=== PATIENT | male | born 1975 | race Caucasian/White ===

== ENCOUNTER 2018-04-09 13:29 | Outpatient (RCR) | payer OTHER, MEDICARE, SELFPAY ==
--- NOTE | 2018-04-10 17:28 | OT.OP.EVAL ---
Visit Care Team Role Provider Type Morgan Otero MD Other Providers Physician Primary Care Provider Specialty: Internal Medicine Address: [address] [address], [place], [address] Email: Rebeca Mason Attending Provider Non-Staff Specialty: Medical Address: [address] [place], [address] Email: Occupational Therapy Initial Evaluation OT Outpatient Adult Evaluation Start: 04/10/18 17:00 Freq: Status: Active Protocol: Document 04/10/18 17:01 AMS (Rec: 04/10/18 17:27 AMS [id number]) General Information Visit Start Time 13:40 Visit Stop Time 14:30 Total Visit Minutes 50 Insurance Information Primary - García; Secondary - Medicare Treatment Setting Outpatient Care Note Type Initial Evaluation Referring Physician JL Duff Reason for Referral ALS Identification Confirmed Yes Medical History Health History form completed and placed in paper chart. Pt is a 42 year-old male with ALS referred to outpt OT for assessment of any current issues w/ his daily execution of meaningful activities and to assist w/ planning for the near future for the additional care he will need. ADLs Comments Mod I; self-modifying at this time Fine Motor Hand Preference Right Comments R side has been more affected than L Goals Treatment Therapist discussed available AE options for ADL completion w/ patient and his Mother. Written and visual instructions re: options were provided to patient and his Mother to review at home. Dressing, g/h, self-feeding, bathing and toileting were discussed. Patient did not identify any other meaningful activities that he was having trouble participating in/ completing at this time. Assessment/Plan Patient Response Good Impairments Identified ADLs Balance Coordination/Dexterity Functional Activities Motor Function Pain Weakness Posture Range of Motion Recreational Activities Meaningful Activities Motor Planning Eye-Hand Coordination Additional Impairments Identified Fasciculations R arm > L arm Treatment Assessment Pt is a 42 year-old male with ALS referred to outpt OT for assessment of any current issues w/ his daily execution of meaningful activities and to assist w/ planning for the near future for the additional care he will need. Pt was accompanied by his Mother to the initial evaluation. PMH: b/p; neck pain; shortness of breath; ALS. Evaluation findings: Pt reported that he is currently mod I w/ completion of meaningful activities at this time and that he is modifying as needed (e.g., I used a wrench the other day to open a jar). Pt denied being previously educated re: AE options/modification strategies. Thus, OT evaluation and treatment on this date focused education. Therapist discussed available AE options for ADL completion. Written and visual instructions re: options were provided to patient and Mother to review at home. Dressing, g/h, self-feeding, bathing and toileting were discussed. Patient did not identify any other meaningful activities that he was having trouble participating in/completing at this time. Thus, denied need for additional, follow-up appointment w/ OT at this time . Home Exercise Program Please refer to treatment section of note for specific details. Reviewed with Patient Home Exercise Program Patient Understanding Good Comment Eval and treat only Therapeutic Contents Self-Care Patient Instruction Questions/Concerns Patient Recommendations Discharge from Occupational Therapy
--- NOTE | 2018-04-10 17:30 | OT.OP.DC ---
Visit Care Team Role Provider Type Morgan Otero MD Other Providers Physician Primary Care Provider Address: [address], [address] Email: Rebeca Mason Attending Provider Non-Staff Address: [address] [place], [address] Email: OT Outpatient OT Outpatient Adult Evaluation Start: 04/10/18 17:00 Freq: Status: Active Protocol: Document 04/10/18 17:01 AMS (Rec: 04/10/18 17:27 AMS [id number]) General Information Session Time Visit Start Time 13:40 Visit Stop Time 14:30 Total Visit Minutes 50 Visit Information Insurance Information Primary - [employer]; Secondary - Medicare Setting Treatment Setting Outpatient Care Visit Type Note Type Initial Evaluation Referral Referring Physician JL Duff Reason for Referral ALS Identification Identification Confirmed Yes Medical Information Medical History Health History form completed and placed in paper chart. Pt is a 42 year-old male with ALS referred to outpt OT for assessment of any current issues w/ his daily execution of meaningful activities and to assist w/ planning for the near future for the additional care he will need. ADLs Overall Ability Comments Mod I; self-modifying at this time Fine Motor Handedness Hand Preference Right Comments R side has been more affected than L Goals Treatment Treatment Therapist discussed available AE options for ADL completion w/ patient and his Mother. Written and visual instructions re: options were provided to patient and his Mother to review at home. Dressing, g/h, self-feeding, bathing and toileting were discussed. Patient did not identify any other meaningful activities that he was having trouble participating in/ completing at this time. Assessment/Plan Assessment Patient Response Good Impairments Identified ADLs Balance Coordination/Dexterity Functional Activities Motor Function Pain Weakness Posture Range of Motion Recreational Activities Meaningful Activities Motor Planning Eye-Hand Coordination Additional Impairments Identified Fasciculations R arm > L arm Treatment Assessment Pt is a 42 year-old male with ALS referred to outpt OT for assessment of any current issues w/ his daily execution of meaningful activities and to assist w/ planning for the near future for the additional care he will need. Pt was accompanied by his Mother to the initial evaluation. PMH: b/p; neck pain; shortness of breath; ALS. Evaluation findings: Pt reported that he is currently mod I w/ completion of meaningful activities at this time and that he is modifying as needed (e.g., I used a wrench the other day to open a jar). Pt denied being previously educated re: AE options/modification strategies. Thus, OT evaluation and treatment on this date focused education. Therapist discussed available AE options for ADL completion. Written and visual instructions re: options were provided to patient and Mother to review at home. Dressing, g/h, self-feeding, bathing and toileting were discussed. Patient did not identify any other meaningful activities that he was having trouble participating in/completing at this time. Thus, denied need for additional, follow-up appointment w/ OT at this time . Home Exercise Program Please refer to treatment section of note for specific details. Reviewed with Patient Home Exercise Program Patient Understanding Good Plan Comment Eval and treat only Therapeutic Contents Self-Care Patient Instruction Questions/Concerns Patient Recommendations Discharge from Occupational Therapy Sensory Assessment Sensory Profile2 Functional Wrist/Hand Scan Hand Side
== END 2018-06-02 11:15 ==
LOC: OT 13:29
PROVIDERS: PCP Internal Medicine; Visit Provider Physician Assistant
DX: G12.21 Amyotrophic lateral sclerosis (principal)
CPT/HCPCS: 97165; 97535

== ENCOUNTER 2018-07-15 13:30 | Outpatient (RCR) | payer OTHER, MEDICARE, SELFPAY | END 2018-12-09 14:26 | disposition home or self-care (01) | LOC: SP 13:30 | PROVIDERS: PCP Internal Medicine; Visit Provider Internal Medicine | DX: R13.10 Dysphagia, unspecified (principal) | CPT/HCPCS: 92507; 92526 ==

== ENCOUNTER 2018-09-08 14:30 | Outpatient (RCR) | payer OTHER, MEDICARE, SELFPAY ==
--- NOTE | 2018-04-09 17:42 | PT.OIE ---
Current Diagnoses Amyotrophic lateral sclerosis (04/09/18) Muscle weakness (generalized) (04/09/18) Ataxic gait (04/09/18) Other abnormalities of gait and mobility (04/09/18) Provider Visit Care Team Role Provider Type Morgan Otero MD Primary Care Provider Physician Specialty: Internal Medicine Address: [address], [address] Email: Rebeca Mason Attending Provider Non-Staff Specialty: Medical Address: [address] [place] [address], [id number] Email: Physical Therapy Initial Evaluation PT-OP-A Visit Information Start: 04/09/18 15:27 Freq: Status: Active Protocol: Document 04/09/18 14:35 DCW (Rec: 04/09/18 15:57 DCW [id number]) Out-Patient Physical Therapy Visit Information Visit Information Visit Type Initial Evaluation Visit Start Time 14:35 Visit Stop Time 15:15 Total Visit Minutes 40 Visit Number 1 Number of SOUND ENGINEERING TECHNICIAN Visits 0 Evaluation Information Evaluation Date 04/09/18 PT-OP-B Current Condition Start: 04/09/18 15:27 Freq: Status: Active Protocol: Document 04/09/18 14:35 DCW (Rec: 04/09/18 15:57 DCW [id number]) Current Condition History of Current Condition Onset Date 1 year Current Complaints ALS, Gait difficulty, weakness , fatigue History of Current Condition Pt is a 42 year old male diagnosed with ALS six months ago, although admits that he now realizes he had symptoms back last summer. 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 Notes he is slower and unable to run, and he'll catch his foot occasionally. Pt also notes that he will occasionally feel like his knee is about to give out, especially when descending stairs. Pt reports he has noticed trouble getting up off the ground, particularly last winter when snowboarding. Pt stays active, trying to walk or ride his bike daily, and wants to continue snowboarding this winter, although his mother, who was present for the evaluation, is not thrilled with that idea. 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 Notes that even though I'm up and walking around without falling , and can still ride my bike, it's still a far cry from what I was doing before. Treatment Goals Patient/Caregiver Goals I hadn't really thought about any sort of goal. They told me to come to PT, so I'm here. I didn't even know what ALS was a year ago, so I'm still trying to figure a lot of things out. 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 Baseline Function- Recreation/Hobbies Motocross, snowboarding, bike riding PT-OP-D Balance Start: 04/09/18 15:27 Freq: Status: Active Protocol: Document 04/09/18 14:35 DCW (Rec: 04/09/18 15:57 DCW [id number]) OP-PT Balance Assessment Sitting Balance Static Sitting Balance Ability Normal Dynamic Sitting Balance Ability Normal Standing Balance Static Standing Balance Ability Normal Dynamic Standing Balance Ability Normal Standing Balance Comments Narrow ESTEPHANIA - EO = Normal Narrow ESTEPHANIA - EC = Normal Narrow ESTEPHANIA - Head Turns = Normal Kelly Fall Scale Copyright Permission Leticia JM, Leticia RM, Brain SJ. Development of a scale to identify the fall- prone patient. Can J Aging 1989;8;366-7. Donato Kelly (2009). Preventing patient falls. (2nd ed). [place]: [place]. PT-OP-G Mobility & Gait Start: 04/09/18 15:27 Freq: Status: Active Protocol: Document 04/09/18 14:35 DCW (Rec: 04/09/18 15:57 DCW [id number]) OP Mobility Evaluation Transfers Sit to Stand Independent OP Gait Assessment Gait Gait Assistance Required: Independent Distance (Feet) 170 Able to Maintain Weight Bearing Status Yes During Gait Assistive Devices Assistive Device None Orthotic/Prosthetic Devices or Brace: No Gait Deviations General Gait Pattern Decreased Stride Length Lateral Trunk Lean Factors Limiting Gait Function Factors Limiting Gait Function Decreased Strength Comments Gait Comments Ambulates with increased stance time on left, left arm held in protective posturing, lateral lean while turning Stair Climbing Evaluation Evaluation Level of Assist On Stairs Independent Devices Stair Climbing Assistive Devices Left Railing Technique/Endurance Stair Climbing Direction Ascend and Descend Stair Climbing Technique Step Over Step Number of Steps Climbed 3 Stair Climbing Set # Repetitions (reps) 2 PT-OP-M Strength Start: 04/09/18 15:27 Freq: Status: Active Protocol: Document 04/09/18 14:35 DCW (Rec: 04/09/18 15:57 DCW [id number]) Hip Strength Hip Manual Muscle Testing Right Flexion (L2) 4+ Good+ Abduction 4+ Good+ Adduction 4+ Good+ Left Flexion (L2) 4+ Good+ Abduction 4+ Good+ Adduction 4+ Good+ Knee Strength Knee Manual Muscle Testing Right Flexion (S2) 4+ Good+ Extension (L3) 4+ Good+ Left Flexion (S2) 4+ Good+ Extension (L3) 4+ Good+ Ankle/Foot Strength Ankle and Foot Manual Muscle Testing Right Dorsiflexion (L4) 4+ Good+ Plantarflexion (S1) 4+ Good+ Left Dorsiflexion (L4) 4+ Good+ Plantarflexion (S1) 4+ Good+ PT-OP-T Assessment and Plan Start: 04/09/18 15:27 Freq: Status: Active Protocol: Document 04/09/18 14:35 DCW (Rec: 04/09/18 15:57 NCW [id number]) Physical Therapy Assessment Rehab Potential Rehabilitation Potential Fair Evaluation Complexity Number of Personal Factors/Comorbidities 3 or More Number of Body Systems Impaired 4 or More Clinical Presentation at Evaluation Unstable Impairments Impairments Activity Tolerance Balance Coordination Gait Strength Goals Three Impairment Activity tolerance Short Term Goal (STG) Pt to ride bike 3x/week for at least 30 minutes STG Duration 05/10/18 Two Impairment Gait Short Term Goal (STG) Pt to display equal stance time during gait bilaterally STG Duration 05/10/18 Print Producer Goal (LTG) Pt to display no LOB while turning LTG Duration 06/09/18 One Impairment Pt does not have an independent home exercise program Short Term Goal (STG) Pt to be independent and complaint with an appropriate HEP STG Duration 05/10/18 Assessment Summary Assessment Pt presents with signs and symptoms of early-stage ALS. Pt has generalized weakness, incoordination, and imbalance with dynamic gait, however overall he is doing very well. Pt currently continues to be out riding his bike, and plans to try snowboarding during the winter. At this time, pt is keeping himself active enough that he will likely not have added benefit from repetitive PT, however will likely benefit from occasional PT sessions to follow the progression of his disease and ensure he is maintaining a safe and appropriate exercise program, and to address ADL difficulties as they become more evident. A large limitation to pt's rehabilitation is the fact that he admits that he does not know much about the disease process, and has not looked into it all all that much. A large portion of pt's care will likely be education and caregiver support as the disease progresses. Physical Therapy Plan Frequency and Duration Frequency of Treatment 1x/Week Duration of Treatment 3 months Plan of Care Start Date 04/09/18 Plan of Care End Date 07/10/17 Therapeutic Interventions Therapeutic Interventions Aquatic Therapy Home Exercise Program Neuromuscular Re-education Patient/Caregiver Education Self-Care/Home Management Soft Tissue Mobilization Therapeutic Activities Therapeutic Exercises Next Visit Focus/Plan Next Note Type Treatment Note Next Visit Plan Advancement of HEP, assessment of function, decrease burden of care
--- NOTE | 2018-04-09 17:42 | PT.OPPOC ---
Current Diagnoses Amyotrophic lateral sclerosis (04/09/18) Muscle weakness (generalized) (04/09/18) Ataxic gait (04/09/18) Other abnormalities of gait and mobility (04/09/18) Provider Visit Care Team Role Provider Type Morgan Otero MD Primary Care Provider Physician Specialty: Internal Medicine Address: [address], [address] Email: Rebeca Mason Attending Provider Non-Staff Specialty: Medical Address: [address] [place] [address], [id number] Email: Plan Of Care PT-OP-T Assessment and Plan Start: 04/09/18 15:27 Freq: Status: Active Protocol: Document 04/09/18 14:35 DCW (Rec: 04/09/18 15:57 DCW [id number]) Physical Therapy Assessment Rehab Potential Rehabilitation Potential Fair Evaluation Complexity Number of Personal Factors/Comorbidities 3 or More Number of Body Systems Impaired 4 or More Clinical Presentation at Evaluation Unstable Impairments Impairments Activity Tolerance Balance Coordination Gait Strength Goals Three Impairment Activity tolerance Short Term Goal (STG) Pt to ride bike 3x/week for at least 30 minutes STG Duration 05/10/18 Two Impairment Gait Short Term Goal (STG) Pt to display equal stance time during gait bilaterally STG Duration 05/10/18 Director Of Reimbursement Goal (LTG) Pt to display no LOB while turning LTG Duration 06/09/18 One Impairment Pt does not have an independent home exercise program Short Term Goal (STG) Pt to be independent and complaint with an appropriate HEP STG Duration 05/10/18 Assessment Summary Assessment Pt presents with signs and symptoms of early-stage ALS. Pt has generalized weakness, incoordination, and imbalance with dynamic gait, however overall he is doing very well. Pt currently continues to be out riding his bike, and plans to try snowboarding during the winter. At this time, pt is keeping himself active enough that he will likely not have added benefit from repetitive PT, however will likely benefit from occasional PT sessions to follow the progression of his disease and ensure he is maintaining a safe and appropriate exercise program, and to address ADL difficulties as they become more evident. A large limitation to pt's rehabilitation is the fact that he admits that he does not know much about the disease process, and has not looked into it all all that much. A large portion of pt's care will likely be education and caregiver support as the disease progresses. Physical Therapy Plan Frequency and Duration Frequency of Treatment 1x/Week Duration of Treatment 3 months Plan of Care Start Date 04/09/18 Plan of Care End Date 07/10/17 Therapeutic Interventions Therapeutic Interventions Aquatic Therapy Home Exercise Program Neuromuscular Re-education Patient/Caregiver Education Self-Care/Home Management Soft Tissue Mobilization Therapeutic Activities Therapeutic Exercises Next Visit Focus/Plan Next Note Type Treatment Note Next Visit Plan Advancement of HEP, assessment of function, decrease burden of care Plan of Care Dates Plan of Care Start Date 04/09/18 Plan of Care End Date 07/10/17 Please Sign and Return: I have reviewed this Plan of Care and certify that the skilled therapy services above are required to meet the patient?s needs. Physician Signature Date Printed Name and Credentials Clinical Instructor Signature Printed Name and Credentials
--- NOTE | 2018-05-06 16:20 | PT.OTN ---
Current Diagnoses Amyotrophic lateral sclerosis (05/06/18) Physical Therapy Treatment Note PT-OP-A Visit Information Start: 04/09/18 15:27 Freq: Status: Active Protocol: Document 05/06/18 14:00 DCW (Rec: 05/06/18 16:19 DCW [id number]) Out-Patient Physical Therapy Visit Information Visit Information Visit Type Treatment Note Visit Note 15 minutes late Visit Start Time 14:00 Visit Stop Time 14:30 Total Visit Minutes 30 Visit Number 2 Number of HSPT TUTOR Visits 0 Evaluation Information Evaluation Date 04/09/18 PT-OP-B Current Condition Start: 04/09/18 15:27 Freq: Status: Active Protocol: Document 04/09/18 14:35 DCW (Rec: 04/09/18 15:57 DCW [id number]) Current Condition History of Current Condition Onset Date 1 year Current Complaints ALS, Gait difficulty, weakness , fatigue History of Current Condition Pt is a 42 year old male diagnosed with ALS six months ago, although admits that he now realizes he had symptoms back last summer. 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 Notes he is slower and unable to run, and he'll catch his foot occasionally. Pt also notes that he will occasionally feel like his knee is about to give out, especially when descending stairs. Pt reports he has noticed trouble getting up off the ground, particularly last winter when snowboarding. Pt stays active, trying to walk or ride his bike daily, and wants to continue snowboarding this winter, although his mother, who was present for the evaluation, is not thrilled with that idea. 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 Notes that even though I'm up and walking around without falling , and can still ride my bike, it's still a far cry from what I was doing before. Treatment Goals Patient/Caregiver Goals I hadn't really thought about any sort of goal. They told me to come to PT, so I'm here. I didn't even know what ALS was a year ago, so I'm still trying to figure a lot of things out. 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 Baseline Function- Recreation/Hobbies Motocross, snowboarding, bike riding PT-OP-C Subjective Start: 04/09/18 15:27 Freq: Status: Active Protocol: Document 05/06/18 14:00 DCW (Rec: 05/06/18 16:19 DCW [id number]) OP-PT Subjective Patient Comments Patient Comments Pt notes there has not been any decline in function since his last visit. PT-OP-D Balance Start: 04/09/18 15:27 Freq: Status: Active Protocol: Document 04/09/18 14:35 DCW (Rec: 04/09/18 15:57 DCW [id number]) OP-PT Balance Assessment Sitting Balance Static Sitting Balance Ability Normal Dynamic Sitting Balance Ability Normal Standing Balance Static Standing Balance Ability Normal Dynamic Standing Balance Ability Normal Standing Balance Comments Narrow ESTEPHANIA - EO = Normal Narrow ESTEPHANIA - EC = Normal Narrow ESTEPHANIA - Head Turns = Normal Kelly Fall Scale Copyright Permission Leticia FIGUEROA, Leticia RM, Brain [place]. Development of a scale to identify the fall- prone patient. Can J Aging 1989;8;366-7. Donato Kelly (2009). Preventing patient falls. (2nd ed). [place]: [place]. PT-OP-G Mobility & Gait Start: 04/09/18 15:27 Freq: Status: Active Protocol: Document 04/09/18 14:35 DCW (Rec: 04/09/18 15:57 DCW [id number]) OP Mobility Evaluation Transfers Sit to Stand Independent OP Gait Assessment Gait Gait Assistance Required: Independent Distance (Feet) 170 Able to Maintain Weight Bearing Status Yes During Gait Assistive Devices Assistive Device None Orthotic/Prosthetic Devices or Brace: No Gait Deviations General Gait Pattern Decreased Stride Length Lateral Trunk Lean Factors Limiting Gait Function Factors Limiting Gait Function Decreased Strength Comments Gait Comments Ambulates with increased stance time on left, left arm held in protective posturing, lateral lean while turning Stair Climbing Evaluation Evaluation Level of Assist On Stairs Independent Devices Stair Climbing Assistive Devices Left Railing Technique/Endurance Stair Climbing Direction Ascend and Descend Stair Climbing Technique Step Over Step Number of Steps Climbed 3 Stair Climbing Set # Repetitions (reps) 2 PT-OP-M Strength Start: 04/09/18 15:27 Freq: Status: Active Protocol: Document 04/09/18 14:35 DCW (Rec: 04/09/18 15:57 DCW [id number]) Hip Strength Hip Manual Muscle Testing Right Flexion (L2) 4+ Good+ Abduction 4+ Good+ Adduction 4+ Good+ Left Flexion (L2) 4+ Good+ Abduction 4+ Good+ Adduction 4+ Good+ Knee Strength Knee Manual Muscle Testing Right Flexion (S2) 4+ Good+ Extension (L3) 4+ Good+ Left Flexion (S2) 4+ Good+ Extension (L3) 4+ Good+ Ankle/Foot Strength Ankle and Foot Manual Muscle Testing Right Dorsiflexion (L4) 4+ Good+ Plantarflexion (S1) 4+ Good+ Left Dorsiflexion (L4) 4+ Good+ Plantarflexion (S1) 4+ Good+ PT-OP-Q Treatments Start: 04/09/18 15:27 Freq: Status: Active Protocol: Document 05/06/18 14:00 DCW (Rec: 05/06/18 16:19 DCW [id number]) Gym Equipment Shuttle Balance Red Details Wide ESTEPHANIA (EO/EC), Staggered Stance, Lateral Weight Shift Therapeutic Exercises Sitting Exercises Connie Scratcher strengthening Sitting Exercise Name full hand and individual finger putty squeeze Resistance Green Equipment Used Thera-putty Neuro Re-Education Treatment Balance Activities Heel-toe Ambulation Details Eyes open/closed, forward/ backward Tippo Details Tippo Step, [place], and head turns Details 3-steps, bow, head turns Double leg on foam Details Romberg stance Surface Maradiaga foam SLS Details /c Head turns Surface Firm, Foam PT-OP-T Assessment and Plan Start: 04/09/18 15:27 Freq: Status: Active Protocol: Document 05/06/18 14:00 DCW (Rec: 05/06/18 16:19 DCW [id number]) Physical Therapy Assessment Impairments Impairments Activity Tolerance Balance Coordination Gait Strength Goals Three Impairment Activity tolerance Short Term Goal (STG) Pt to ride bike 3x/week for at least 30 minutes STG Duration 05/10/18 Two Impairment Gait Short Term Goal (STG) Pt to display equal stance time during gait bilaterally STG Duration 05/10/18 Retirement Goal (LTG) Pt to display no LOB while turning LTG Duration 06/09/18 One Impairment Pt does not have an independent home exercise program Short Term Goal (STG) Pt to be independent and complaint with an appropriate HEP STG Duration 05/10/18 Assessment Summary Assessment Pt has no change in current level of function over the past month, pt currently unsure if he wants to continue with semi-regular appointments, or just continue with an HEP, and call for visits if he feels like he is suffering a decline in function. Physical Therapy Plan Frequency and Duration Frequency of Treatment 1x/Week Duration of Treatment 3 months Plan of Care Start Date 04/09/18 Plan of Care End Date 07/10/18 Therapeutic Interventions Therapeutic Interventions Aquatic Therapy Home Exercise Program Neuromuscular Re-education Patient/Caregiver Education Self-Care/Home Management Soft Tissue Mobilization Therapeutic Activities Therapeutic Exercises Next Visit Focus/Plan Next Note Type Treatment Note Next Visit Plan Advancement of HEP, assessment of function, decrease burden of care
--- NOTE | 2018-07-15 14:43 | PT.OTN ---
Current Diagnoses Amyotrophic lateral sclerosis (07/15/18) Physical Therapy Treatment Note PT-OP-A Visit Information Start: 04/09/18 15:27 Freq: Status: Active Protocol: Document 07/15/18 12:15 DCW (Rec: 07/15/18 14:40 DCW [id number]) Out-Patient Physical Therapy Visit Information Visit Information Visit Type Progress Note Visit Note 15 minutes late Visit Start Time 12:15 Visit Stop Time 12:45 Total Visit Minutes 30 Visit Number 3 Evaluation Information Evaluation Date 04/09/18 PT-OP-B Current Condition Start: 04/09/18 15:27 Freq: Status: Active Protocol: Document 04/09/18 14:35 DCW (Rec: 04/09/18 15:57 DCW [id number]) Current Condition History of Current Condition Onset Date 1 year Current Complaints ALS, Gait difficulty, weakness , fatigue History of Current Condition Pt is a 42 year old male diagnosed with ALS six months ago, although admits that he now realizes he had symptoms back last summer. Reports that his weakness began in his hands with driller multiple spindle strength and fine motor skills, but now he feels like his walking is stiff and Frankenstein-like. Notes he is slower and unable to run, and he'll catch his foot occasionally. Pt also notes that he will occasionally feel like his knee is about to give out, especially when descending stairs. Pt reports he has noticed trouble getting up off the ground, particularly last winter when snowboarding. Pt stays active, trying to walk or ride his bike daily, and wants to continue snowboarding this winter, although his mother, who was present for the evaluation, is not thrilled with that idea. 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 Notes that even though I'm up and walking around without falling , and can still ride my bike, it's still a far cry from what I was doing before. Treatment Goals Patient/Caregiver Goals I hadn't really thought about any sort of goal. They told me to come to PT, so I'm here. I didn't even know what ALS was a year ago, so I'm still trying to figure a lot of things out. 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 Baseline Function- Recreation/Hobbies Motocross, snowboarding, bike riding PT-OP-C Subjective Start: 04/09/18 15:27 Freq: Status: Active Protocol: Document 07/15/18 12:15 DCW (Rec: 07/15/18 14:40 DCW [id number]) OP-PT Subjective Patient Comments Patient Comments Pt reports he has been stubbing his toes a lot more recently. Reports he tried to go snowboarding over the weekend, notes I made it to the bottom, but I was very unstable. PT-OP-D Balance Start: 04/09/18 15:27 Freq: Status: Active Protocol: Document 07/15/18 12:15 DCW (Rec: 07/15/18 14:40 DCW [id number]) OP-PT Balance Assessment Standing Balance Static Standing Balance Ability Good Dynamic Standing Balance Ability Good Kelly Fall Scale Copyright Permission Leticia FIGUEROA, Leticia RM, Brain S[place]. Development of a scale to identify the fall- prone patient. Can J Aging 1989;8;366-7. Donato Kelly (2009). Preventing patient falls. (2nd ed). [place]: [place]. PT-OP-G Mobility & Gait Start: 04/09/18 15:27 Freq: Status: Active Protocol: Document 04/09/18 14:35 DCW (Rec: 04/09/18 15:57 DCW [id number]) OP Mobility Evaluation Transfers Sit to Stand Independent OP Gait Assessment Gait Gait Assistance Required: Independent Distance (Feet) 170 Able to Maintain Weight Bearing Status Yes During Gait Assistive Devices Assistive Device None Orthotic/Prosthetic Devices or Brace: No Gait Deviations General Gait Pattern Decreased Stride Length Lateral Trunk Lean Factors Limiting Gait Function Factors Limiting Gait Function Decreased Strength Comments Gait Comments Ambulates with increased stance time on left, left arm held in protective posturing, lateral lean while turning Stair Climbing Evaluation Evaluation Level of Assist On Stairs Independent Devices Stair Climbing Assistive Devices Left Railing Technique/Endurance Stair Climbing Direction Ascend and Descend Stair Climbing Technique Step Over Step Number of Steps Climbed 3 Stair Climbing Set # Repetitions (reps) 2 PT-OP-J Posture/Palpation/Skin Start: 07/15/18 14:40 Freq: Status: Active Protocol: Document 07/15/18 12:15 DCW (Rec: 07/15/18 14:43 DCW [id number]) Posture Evaluation Position Standing Evaluation View Lateral Head/C-Spine Posture Forward Head T-Spine Posture Increased Kyphosis Shoulder Posture (L) Rounded (R) Rounded Scapula Posture (L) Protracted (R) Protracted PT-OP-K Range of Motion Start: 07/15/18 14:40 Freq: Status: Active Protocol: Document 07/15/18 12:15 DCW (Rec: 07/15/18 14:43 DCW [id number]) Shoulder Goniometric Range of Motion Shoulder Measured in Degrees Right Passive Flexion 180 Abduction 180 Right Active Flexion 58 Abduction 47 Left Passive Flexion 180 Abduction 180 Left Active Flexion 52 Abduction 46 PT-OP-M Strength Start: 04/09/18 15:27 Freq: Status: Active Protocol: Document 07/15/18 12:15 DCW (Rec: 07/15/18 14:40 DCW [id number]) Shoulder Strength Shoulder Manual Muscle Testing Right Flexion 3- Fair- Abduction (C5) 3- Fair- Left Flexion 3- Fair- Abduction (C5) 3- Fair- Hip Strength Hip Manual Muscle Testing Right Flexion (L2) 4 Good Abduction 4 Good Adduction 4 Good Left Flexion (L2) 4 Good Abduction 4 Good Adduction 4 Good Knee Strength Knee Manual Muscle Testing Right Flexion (S2) 4 Good Extension (L3) 4 Good Left Flexion (S2) 4 Good Extension (L3) 4 Good PT-OP-Q Treatments Start: 04/09/18 15:27 Freq: Status: Active Protocol: Document 07/15/18 12:15 DCW (Rec: 07/15/18 14:40 DCW [id number]) Gym Equipment Shuttle Balance Red Details Wide ESTEPHANIA (EO/EC), Staggered Stance, Lateral Weight Shift Therapeutic Exercises Sitting Exercises Wrist flexion stretch Sitting Exercise Name Stretch into wrist extension Shoulder Flexion Sitting Exercise Name Shoulder flexion in chair Resistance 0# Shoulder PROM Sitting Exercise Name Flexion/Abduction with pulleys Side bilateral Equipment Used Pulleys Standing Exercises Corner/Door stretch Standing Exercise Name Corner stretch Other Exercises Hurdles/Foam Other Exercise Name Hurdles/Foam with 5# ankle weights PT-OP-T Assessment and Plan Start: 04/09/18 15:27 Freq: Status: Active Protocol: Document 07/15/18 12:15 DCW (Rec: 07/15/18 14:40 DCW [id number]) Physical Therapy Assessment Impairments Impairments Activity Tolerance Balance Coordination Gait Strength Goals Three Impairment Activity tolerance Short Term Goal (STG) Pt to ride bike 3x/week for at least 30 minutes STG Duration 08/15/18 Two Impairment Gait Short Term Goal (STG) Pt to display equal stance time during gait bilaterally STG Duration 08/15/18 Custodial Goal (LTG) Pt to display no LOB while turning LTG Duration 09/12/18 One Impairment Pt does not have an independent home exercise program Short Term Goal (STG) Pt to be independent and complaint with an appropriate HEP STG Duration 08/15/18 Assessment Summary Assessment Pt displays decreased function since April, with weakness evident bilaterally, UE worse than LE, worsening forward shoulders posture, and stated worsening control of his feet pt instructed in multiple stretches, and suggested to work more on his driller multiple spindle strength than what he has been. PT and pt's mother discussed increasing frequency of visits . Physical Therapy Plan Frequency and Duration Frequency of Treatment 1x/Week Duration of Treatment 3 months Plan of Care Start Date 07/15/18 Plan of Care End Date 10/13/18 Therapeutic Interventions Therapeutic Interventions Aquatic Therapy Home Exercise Program Neuromuscular Re-education Patient/Caregiver Education Self-Care/Home Management Soft Tissue Mobilization Therapeutic Activities Therapeutic Exercises Next Visit Focus/Plan Next Note Type Treatment Note Next Visit Plan Advancement of HEP, assessment of function, decrease burden of care
--- NOTE | 2018-07-15 14:44 | PT.OPPOC ---
Current Diagnoses Amyotrophic lateral sclerosis (07/15/18) Provider Visit Care Team Role Provider Type Morgan Otero MD Primary Care Provider Physician Specialty: Internal Medicine Address: [address], [address] Email: Rebeca Mason Attending Provider Non-Staff Specialty: Medical Address: [address] [facility], [place], [address] Email: Plan Of Care PT-OP-T Assessment and Plan Start: 04/09/18 15:27 Freq: Status: Active Protocol: Document 07/15/18 12:15 DCW (Rec: 07/15/18 14:40 DCW [id number]) Physical Therapy Assessment Impairments Impairments Activity Tolerance Balance Coordination Gait Strength Goals Three Impairment Activity tolerance Short Term Goal (STG) Pt to ride bike 3x/week for at least 30 minutes STG Duration 08/15/18 Two Impairment Gait Short Term Goal (STG) Pt to display equal stance time during gait bilaterally STG Duration 08/15/18 Prison Goal (LTG) Pt to display no LOB while turning LTG Duration 09/12/18 One Impairment Pt does not have an independent home exercise program Short Term Goal (STG) Pt to be independent and complaint with an appropriate HEP STG Duration 08/15/18 Assessment Summary Assessment Pt displays decreased function since April, with weakness evident bilaterally, UE worse than LE, worsening forward shoulders posture, and stated worsening control of his feet pt instructed in multiple stretches, and 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 PT and pt's mother discussed increasing frequency of visits . Physical Therapy Plan Frequency and Duration Frequency of Treatment 1x/Week Duration of Treatment 3 months Plan of Care Start Date 07/15/18 Plan of Care End Date 10/13/18 Therapeutic Interventions Therapeutic Interventions Aquatic Therapy Home Exercise Program Neuromuscular Re-education Patient/Caregiver Education Self-Care/Home Management Soft Tissue Mobilization Therapeutic Activities Therapeutic Exercises Next Visit Focus/Plan Next Note Type Treatment Note Next Visit Plan Advancement of HEP, assessment of function, decrease burden of care Plan of Care Dates Plan of Care Start Date 07/15/18 Plan of Care End Date 10/13/18 Please Sign and Return: I have reviewed this Plan of Care and certify that the skilled therapy services above are required to meet the patient?s needs. Physician Signature Date Printed Name and Credentials Clinical Instructor Signature Printed Name and Credentials
--- NOTE | 2018-07-23 15:17 | PT.OTN ---
Current Diagnoses Amyotrophic lateral sclerosis (07/23/18) Physical Therapy Treatment Note PT-OP-A Visit Information Start: 04/09/18 15:27 Freq: Status: Active Protocol: Document 07/23/18 14:30 DCW (Rec: 07/23/18 15:17 DCW [id number]) Out-Patient Physical Therapy Visit Information Visit Information Visit Type Treatment Note Visit Start Time 14:30 Visit Stop Time 15:15 Total Visit Minutes 45 Visit Number 4 Number of RUBBER TILE FLOOR LAYER Visits 0 Evaluation Information Evaluation Date 04/09/18 PT-OP-B Current Condition Start: 04/09/18 15:27 Freq: Status: Active Protocol: Document 04/09/18 14:35 DCW (Rec: 04/09/18 15:57 DCW [id number]) Current Condition History of Current Condition Onset Date 1 year Current Complaints ALS, Gait difficulty, weakness , fatigue History of Current Condition Pt is a 42 year old male diagnosed with ALS six months ago, although admits that he now realizes he had symptoms back last summer. Reports that his weakness began in his hands with vp software support strength and fine motor skills, but now he feels like his walking is stiff and Frankenstein-like. Notes he is slower and unable to run, and he'll catch his foot occasionally. Pt also notes that he will occasionally feel like his knee is about to give out, especially when descending stairs. Pt reports he has noticed trouble getting up off the ground, particularly last winter when snowboarding. Pt stays active, trying to walk or ride his bike daily, and wants to continue snowboarding this winter, although his mother, who was present for the evaluation, is not thrilled with that idea. 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 Notes that even though I'm up and walking around without falling , and can still ride my bike, it's still a far cry from what I was doing before. Treatment Goals Patient/Caregiver Goals I hadn't really thought about any sort of goal. They told me to come to PT, so I'm here. I didn't even know what ALS was a year ago, so I'm still trying to figure a lot of things out. 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 Baseline Function- Recreation/Hobbies Motocross, snowboarding, bike riding PT-OP-C Subjective Start: 04/09/18 15:27 Freq: Status: Active Protocol: Document 07/23/18 14:30 DCW (Rec: 07/23/18 15:17 DCW [id number]) OP-PT Subjective Patient Comments Patient Comments Pt notes he's feeling better today. PT-OP-D Balance Start: 04/09/18 15:27 Freq: Status: Active Protocol: Document 07/15/18 12:15 DCW (Rec: 07/15/18 14:40 DCW [id number]) OP-PT Balance Assessment Standing Balance Static Standing Balance Ability Good Dynamic Standing Balance Ability Good Kelly Fall Scale Copyright Permission Leticia FIGUEROA, Leticia RM, Brain SJ. Development of a scale to identify the fall- prone patient. Can J Aging 1989;8;366-7. Donato Kelly (2009). Preventing patient falls. (2nd ed). [place]: [place]. PT-OP-G Mobility & Gait Start: 04/09/18 15:27 Freq: Status: Active Protocol: Document 04/09/18 14:35 DCW (Rec: 04/09/18 15:57 DCW [id number]) OP Mobility Evaluation Transfers Sit to Stand Independent OP Gait Assessment Gait Gait Assistance Required: Independent Distance (Feet) 170 Able to Maintain Weight Bearing Status Yes During Gait Assistive Devices Assistive Device None Orthotic/Prosthetic Devices or Brace: No Gait Deviations General Gait Pattern Decreased Stride Length Lateral Trunk Lean Factors Limiting Gait Function Factors Limiting Gait Function Decreased Strength Comments Gait Comments Ambulates with increased stance time on left, left arm held in protective posturing, lateral lean while turning Stair Climbing Evaluation Evaluation Level of Assist On Stairs Independent Devices Stair Climbing Assistive Devices Left Railing Technique/Endurance Stair Climbing Direction Ascend and Descend Stair Climbing Technique Step Over Step Number of Steps Climbed 3 Stair Climbing Set # Repetitions (reps) 2 PT-OP-J Posture/Palpation/Skin Start: 07/15/18 14:40 Freq: Status: Active Protocol: Document 07/15/18 12:15 DCW (Rec: 07/15/18 14:43 DCW [id number]) Posture Evaluation Position Standing Evaluation View Lateral Head/C-Spine Posture Forward Head T-Spine Posture Increased Kyphosis Shoulder Posture (L) Rounded (R) Rounded Scapula Posture (L) Protracted (R) Protracted PT-OP-K Range of Motion Start: 07/15/18 14:40 Freq: Status: Active Protocol: Document 07/15/18 12:15 DCW (Rec: 07/15/18 14:43 DCW [id number]) Shoulder Goniometric Range of Motion Shoulder Measured in Degrees Right Passive Flexion 180 Abduction 180 Right Active Flexion 58 Abduction 47 Left Passive Flexion 180 Abduction 180 Left Active Flexion 52 Abduction 46 PT-OP-M Strength Start: 04/09/18 15:27 Freq: Status: Active Protocol: Document 07/15/18 12:15 DCW (Rec: 07/15/18 14:40 DCW [id number]) Shoulder Strength Shoulder Manual Muscle Testing Right Flexion 3- Fair- Abduction (C5) 3- Fair- Left Flexion 3- Fair- Abduction (C5) 3- Fair- Hip Strength Hip Manual Muscle Testing Right Flexion (L2) 4 Good Abduction 4 Good Adduction 4 Good Left Flexion (L2) 4 Good Abduction 4 Good Adduction 4 Good Knee Strength Knee Manual Muscle Testing Right Flexion (S2) 4 Good Extension (L3) 4 Good Left Flexion (S2) 4 Good Extension (L3) 4 Good PT-OP-Q Treatments Start: 04/09/18 15:27 Freq: Status: Active Protocol: Document 07/23/18 14:30 DCW (Rec: 07/23/18 15:17 DCW [id number]) Gym Equipment Shuttle Balance Red Details Wide ESTEPHANIA (EO/EC), Staggered Stance, Lateral Weight Shift Therapeutic Exercises Supine Exercises Piriformis stretch Supine Exercise Name Figure-4 Side bilateral Single KtC Supine Exercise Name Single KtC Side bilateral Hamstring stretch Supine Exercise Name HS stretch Side bilateral Butterfly Stretch Supine Exercise Name Hands behind head Side bilateral Pec Stretch Supine Exercise Name foam roll pec stretch Side bilateral Equipment Used Foam Roll Foam-roll Supine Exercise Name Shoulder flex/ext, sh Horizontal adduction Side bilateral Resistance 2# Sitting Exercises Shoulder PROM Sitting Exercise Name Flexion/Abduction with pulleys Side bilateral Equipment Used Pulleys PT-OP-T Assessment and Plan Start: 04/09/18 15:27 Freq: Status: Active Protocol: Document 07/23/18 14:30 DCW (Rec: 07/23/18 15:17 DCW [id number]) Physical Therapy Assessment Impairments Impairments Activity Tolerance Balance Coordination Gait Strength Goals Three Impairment Activity tolerance Short Term Goal (STG) Pt to ride bike 3x/week for at least 30 minutes STG Duration 08/15/18 Two Impairment Gait Short Term Goal (STG) Pt to display equal stance time during gait bilaterally STG Duration 08/15/18 Prison Goal (LTG) Pt to display no LOB while turning LTG Duration 09/12/18 One Impairment Pt does not have an independent home exercise program Short Term Goal (STG) Pt to be independent and complaint with an appropriate HEP STG Duration 08/15/18 Assessment Summary Assessment Pt tolerated stretching well today, interested in increasing flexibility to improve functional movement. Physical Therapy Plan Frequency and Duration Frequency of Treatment 1x/Week Duration of Treatment 3 months Plan of Care Start Date 07/15/18 Plan of Care End Date 10/13/18 Therapeutic Interventions Therapeutic Interventions Aquatic Therapy Home Exercise Program Neuromuscular Re-education Patient/Caregiver Education Self-Care/Home Management Soft Tissue Mobilization Therapeutic Activities Therapeutic Exercises Next Visit Focus/Plan Next Note Type Treatment Note Next Visit Plan Advancement of HEP, assessment of function, decrease burden of care
--- NOTE | 2018-07-28 15:51 | PT.OTN ---
Current Diagnoses Amyotrophic lateral sclerosis (07/28/18) Physical Therapy Treatment Note PT-OP-A Visit Information Start: 04/09/18 15:27 Freq: Status: Active Protocol: Document 07/28/18 15:42 GGD (Rec: 07/28/18 15:51 GGD [id number]) Out-Patient Physical Therapy Visit Information Visit Information Visit Type Treatment Note Visit Note 15 minutes late Visit Start Time 14:45 Visit Stop Time 15:20 Total Visit Minutes 35 Visit Number 5 Number of SLATE MIXER Visits 1 Evaluation Information Evaluation Date 04/09/18 PT-OP-B Current Condition Start: 04/09/18 15:27 Freq: Status: Active Protocol: Document 04/09/18 14:35 DCW (Rec: 04/09/18 15:57 DCW [id number]) Current Condition History of Current Condition Onset Date 1 year Current Complaints ALS, Gait difficulty, weakness , fatigue History of Current Condition Pt is a 42 year old male diagnosed with ALS six months ago, although admits that he now realizes he had symptoms back last summer. Reports that his weakness began in his hands with seed potato cutter strength and fine motor skills, but now he feels like his walking is stiff and Frankenstein-like. Notes he is slower and unable to run, and he'll catch his foot occasionally. Pt also notes that he will occasionally feel like his knee is about to give out, especially when descending stairs. Pt reports he has noticed trouble getting up off the ground, particularly last winter when snowboarding. Pt stays active, trying to walk or ride his bike daily, and wants to continue snowboarding this winter, although his mother, who was present for the evaluation, is not thrilled with that idea. 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 Notes that even though I'm up and walking around without falling , and can still ride my bike, it's still a far cry from what I was doing before. Treatment Goals Patient/Caregiver Goals I hadn't really thought about any sort of goal. They told me to come to PT, so I'm here. I didn't even know what ALS was a year ago, so I'm still trying to figure a lot of things out. 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 Baseline Function- Recreation/Hobbies Motocross, snowboarding, bike riding PT-OP-C Subjective Start: 04/09/18 15:27 Freq: Status: Active Protocol: Document 07/28/18 15:42 GGD (Rec: 07/28/18 15:51 GGD [id number]) OP-PT Subjective Patient Comments Patient Comments Pt states he done a lot of walking today and his leg are tired. PT-OP-D Balance Start: 04/09/18 15:27 Freq: Status: Active Protocol: Document 07/15/18 12:15 DCW (Rec: 07/15/18 14:40 DCW [id number]) OP-PT Balance Assessment Standing Balance Static Standing Balance Ability Good Dynamic Standing Balance Ability Good Kelly Fall Scale Copyright Permission Leticia FIGUEROA, Leticia RM, Brain S[place]. Development of a scale to identify the fall- prone patient. Can J Aging 1989;8;366-7. Donato Kelly (2009). Preventing patient falls. (2nd ed). [place]: [place]. PT-OP-G Mobility & Gait Start: 04/09/18 15:27 Freq: Status: Active Protocol: Document 04/09/18 14:35 DCW (Rec: 04/09/18 15:57 DCW [id number]) OP Mobility Evaluation Transfers Sit to Stand Independent OP Gait Assessment Gait Gait Assistance Required: Independent Distance (Feet) 170 Able to Maintain Weight Bearing Status Yes During Gait Assistive Devices Assistive Device None Orthotic/Prosthetic Devices or Brace: No Gait Deviations General Gait Pattern Decreased Stride Length Lateral Trunk Lean Factors Limiting Gait Function Factors Limiting Gait Function Decreased Strength Comments Gait Comments Ambulates with increased stance time on left, left arm held in protective posturing, lateral lean while turning Stair Climbing Evaluation Evaluation Level of Assist On Stairs Independent Devices Stair Climbing Assistive Devices Left Railing Technique/Endurance Stair Climbing Direction Ascend and Descend Stair Climbing Technique Step Over Step Number of Steps Climbed 3 Stair Climbing Set # Repetitions (reps) 2 PT-OP-J Posture/Palpation/Skin Start: 07/15/18 14:40 Freq: Status: Active Protocol: Document 07/15/18 12:15 DCW (Rec: 07/15/18 14:43 DCW [id number]) Posture Evaluation Position Standing Evaluation View Lateral Head/C-Spine Posture Forward Head T-Spine Posture Increased Kyphosis Shoulder Posture (L) Rounded (R) Rounded Scapula Posture (L) Protracted (R) Protracted PT-OP-K Range of Motion Start: 07/15/18 14:40 Freq: Status: Active Protocol: Document 07/15/18 12:15 DCW (Rec: 07/15/18 14:43 DCW [id number]) Shoulder Goniometric Range of Motion Shoulder Measured in Degrees Right Passive Flexion 180 Abduction 180 Right Active Flexion 58 Abduction 47 Left Passive Flexion 180 Abduction 180 Left Active Flexion 52 Abduction 46 PT-OP-M Strength Start: 04/09/18 15:27 Freq: Status: Active Protocol: Document 07/15/18 12:15 DCW (Rec: 07/15/18 14:40 DCW [id number]) Shoulder Strength Shoulder Manual Muscle Testing Right Flexion 3- Fair- Abduction (C5) 3- Fair- Left Flexion 3- Fair- Abduction (C5) 3- Fair- Hip Strength Hip Manual Muscle Testing Right Flexion (L2) 4 Good Abduction 4 Good Adduction 4 Good Left Flexion (L2) 4 Good Abduction 4 Good Adduction 4 Good Knee Strength Knee Manual Muscle Testing Right Flexion (S2) 4 Good Extension (L3) 4 Good Left Flexion (S2) 4 Good Extension (L3) 4 Good PT-OP-Q Treatments Start: 04/09/18 15:27 Freq: Status: Active Protocol: Document 07/28/18 15:42 GGD (Rec: 07/28/18 15:51 GGD [id number]) Gym Equipment Shuttle Balance Red Details Wide ESTEPHANIA (EO/EC), Staggered Stance, Lateral Weight Shift Therapeutic Exercises Supine Exercises Piriformis stretch Supine Exercise Name Figure-4 Side bilateral Single KtC Supine Exercise Name Single KtC Side bilateral Hamstring stretch Supine Exercise Name HS stretch Side bilateral Butterfly Stretch Supine Exercise Name Hands behind head Side bilateral Pec Stretch Supine Exercise Name foam roll pec stretch Side bilateral Equipment Used Foam Roll Foam-roll Supine Exercise Name Shoulder flex/ext, sh Horizontal adduction Side bilateral Resistance 2# Sitting Exercises Shoulder PROM Sitting Exercise Name Flexion/Abduction with pulleys Side bilateral Equipment Used Pulleys Standing Exercises 1 Standing Exercise Name sit to stand from table Comments min cues for control PT-OP-T Assessment and Plan Start: 04/09/18 15:27 Freq: Status: Active Protocol: Document 07/28/18 15:42 GGD (Rec: 07/28/18 15:51 GGD [id number]) Physical Therapy Assessment Assessment Summary Assessment Pt improved with sit to stand control with cues. He had good tolerance to balance, but fatigued quickly. Physical Therapy Plan Frequency and Duration Frequency of Treatment 1x/Week Duration of Treatment 3 months Plan of Care Start Date 07/15/18 Plan of Care End Date 10/13/18 Therapeutic Interventions Therapeutic Interventions Aquatic Therapy Home Exercise Program Neuromuscular Re-education Patient/Caregiver Education Self-Care/Home Management Soft Tissue Mobilization Therapeutic Activities Therapeutic Exercises Next Visit Focus/Plan Next Note Type Treatment Note Next Visit Plan Advancement of HEP, assessment of function, decrease burden of care
--- NOTE | 2018-08-12 15:16 | PT.OTN ---
Current Diagnoses Amyotrophic lateral sclerosis (08/12/18) Physical Therapy Treatment Note PT-OP-A Visit Information Start: 04/09/18 15:27 Freq: Status: Active Protocol: Document 08/12/18 14:30 DCW (Rec: 08/12/18 15:16 DCW [id number]) Out-Patient Physical Therapy Visit Information Visit Information Visit Type Treatment Note Visit Start Time 14:30 Visit Stop Time 15:15 Total Visit Minutes 45 Visit Number 6 Number of CENTRAL SUPPLY TECHNICIAN Visits 0 Evaluation Information Evaluation Date 04/09/18 PT-OP-B Current Condition Start: 04/09/18 15:27 Freq: Status: Active Protocol: Document 04/09/18 14:35 DCW (Rec: 04/09/18 15:57 DCW [id number]) Current Condition History of Current Condition Onset Date 1 year Current Complaints ALS, Gait difficulty, weakness , fatigue History of Current Condition Pt is a 42 year old male diagnosed with ALS six months ago, although admits that he now realizes he had symptoms back last summer. Reports that his weakness began in his hands with supply chain coordinator strength and fine motor skills, but now he feels like his walking is stiff and Frankenstein-like. Notes he is slower and unable to run, and he'll catch his foot occasionally. Pt also notes that he will occasionally feel like his knee is about to give out, especially when descending stairs. Pt reports he has noticed trouble getting up off the ground, particularly last winter when snowboarding. Pt stays active, trying to walk or ride his bike daily, and wants to continue snowboarding this winter, although his mother, who was present for the evaluation, is not thrilled with that idea. 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 Notes that even though I'm up and walking around without falling , and can still ride my bike, it's still a far cry from what I was doing before. Treatment Goals Patient/Caregiver Goals I hadn't really thought about any sort of goal. They told me to come to PT, so I'm here. I didn't even know what ALS was a year ago, so I'm still trying to figure a lot of things out. 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 Baseline Function- Recreation/Hobbies Motocross, snowboarding, bike riding PT-OP-C Subjective Start: 04/09/18 15:27 Freq: Status: Active Protocol: Document 08/12/18 14:30 DCW (Rec: 08/12/18 15:16 DCW [id number]) OP-PT Subjective Patient Comments Patient Comments Pt reports he is doing well today PT-OP-D Balance Start: 04/09/18 15:27 Freq: Status: Active Protocol: Document 07/15/18 12:15 DCW (Rec: 07/15/18 14:40 DCW [id number]) OP-PT Balance Assessment Standing Balance Static Standing Balance Ability Good Dynamic Standing Balance Ability Good Kelly Fall Scale Copyright Permission Leticia FIGUEROA, Leticia RM, Brain SJ. Development of a scale to identify the fall- prone patient. Can J Aging 1989;8;366-7. Donato Kelly (2009). Preventing patient falls. (2nd ed). [place]: [place]. PT-OP-G Mobility & Gait Start: 04/09/18 15:27 Freq: Status: Active Protocol: Document 04/09/18 14:35 DCW (Rec: 04/09/18 15:57 DCW [id number]) OP Mobility Evaluation Transfers Sit to Stand Independent OP Gait Assessment Gait Gait Assistance Required: Independent Distance (Feet) 170 Able to Maintain Weight Bearing Status Yes During Gait Assistive Devices Assistive Device None Orthotic/Prosthetic Devices or Brace: No Gait Deviations General Gait Pattern Decreased Stride Length Lateral Trunk Lean Factors Limiting Gait Function Factors Limiting Gait Function Decreased Strength Comments Gait Comments Ambulates with increased stance time on left, left arm held in protective posturing, lateral lean while turning Stair Climbing Evaluation Evaluation Level of Assist On Stairs Independent Devices Stair Climbing Assistive Devices Left Railing Technique/Endurance Stair Climbing Direction Ascend and Descend Stair Climbing Technique Step Over Step Number of Steps Climbed 3 Stair Climbing Set # Repetitions (reps) 2 PT-OP-J Posture/Palpation/Skin Start: 07/15/18 14:40 Freq: Status: Active Protocol: Document 07/15/18 12:15 DCW (Rec: 07/15/18 14:43 DCW [id number]) Posture Evaluation Position Standing Evaluation View Lateral Head/C-Spine Posture Forward Head T-Spine Posture Increased Kyphosis Shoulder Posture (L) Rounded (R) Rounded Scapula Posture (L) Protracted (R) Protracted PT-OP-K Range of Motion Start: 07/15/18 14:40 Freq: Status: Active Protocol: Document 07/15/18 12:15 DCW (Rec: 07/15/18 14:43 DCW [id number]) Shoulder Goniometric Range of Motion Shoulder Measured in Degrees Right Passive Flexion 180 Abduction 180 Right Active Flexion 58 Abduction 47 Left Passive Flexion 180 Abduction 180 Left Active Flexion 52 Abduction 46 PT-OP-M Strength Start: 04/09/18 15:27 Freq: Status: Active Protocol: Document 07/15/18 12:15 DCW (Rec: 07/15/18 14:40 DCW [id number]) Shoulder Strength Shoulder Manual Muscle Testing Right Flexion 3- Fair- Abduction (C5) 3- Fair- Left Flexion 3- Fair- Abduction (C5) 3- Fair- Hip Strength Hip Manual Muscle Testing Right Flexion (L2) 4 Good Abduction 4 Good Adduction 4 Good Left Flexion (L2) 4 Good Abduction 4 Good Adduction 4 Good Knee Strength Knee Manual Muscle Testing Right Flexion (S2) 4 Good Extension (L3) 4 Good Left Flexion (S2) 4 Good Extension (L3) 4 Good PT-OP-Q Treatments Start: 04/09/18 15:27 Freq: Status: Active Protocol: Document 08/12/18 14:30 DCW (Rec: 08/12/18 15:16 DCW [id number]) Cardio Equipment Upper Body Ergometer (UBE) Duration (Minutes) 5 RPM 60 Seat Position 14 Height 3 Gym Equipment Shuttle Balance Red Details Wide ESTEPHANIA (EO/EC, vs perturbation), Staggered Stance /c ball toss Therapeutic Exercises Standing Exercises Wall snow angels Standing Exercise Name Wall snow angels Toe-taps Standing Exercise Name [place]-taps Side bilateral Resistance 5# Equipment Used 8 step Comments 60->70/sec tempo, 4 step 90/ sec Corner/Door stretch Standing Exercise Name Corner stretch Other Exercises Resisted Side-stepping Other Exercise Name Resisted side-stepping Side bilateral Resistance Green Equipment Used T-band Hurdles/Foam Other Exercise Name Hurdles/Foam Comments Tandem and side-stepping PT-OP-T Assessment and Plan Start: 04/09/18 15:27 Freq: Status: Active Protocol: Document 08/12/18 14:30 DCW (Rec: 08/12/18 15:16 DCW [id number]) Physical Therapy Assessment Impairments Impairments Activity Tolerance Balance Coordination Gait Strength Goals Three Impairment Activity tolerance Short Term Goal (STG) Pt to ride bike 3x/week for at least 30 minutes STG Duration 08/15/18 Two Impairment Gait Short Term Goal (STG) Pt to display equal stance time during gait bilaterally STG Duration 08/15/18 Spray Operator Goal (LTG) Pt to display no LOB while turning LTG Duration 09/12/18 One Impairment Pt does not have an independent home exercise program Short Term Goal (STG) Pt to be independent and complaint with an appropriate HEP STG Duration 08/15/18 Assessment Summary Assessment Pt fatiguing less quickly compared to prior visits, required fewer rest breaks. Pt admits he has not been stretching at home very much, but will try to work more at it. Physical Therapy Plan Frequency and Duration Frequency of Treatment 1x/Week Duration of Treatment 3 months Plan of Care Start Date 07/15/18 Plan of Care End Date 10/13/18 Therapeutic Interventions Therapeutic Interventions Aquatic Therapy Home Exercise Program Neuromuscular Re-education Patient/Caregiver Education Self-Care/Home Management Soft Tissue Mobilization Therapeutic Activities Therapeutic Exercises Next Visit Focus/Plan Next Note Type Treatment Note Next Visit Plan Advancement of HEP, assessment of function, decrease burden of care
--- NOTE | 2018-09-02 14:30 | PT.OTN ---
Current Diagnoses Amyotrophic lateral sclerosis (09/02/18) Physical Therapy Treatment Note PT-OP-A Visit Information Start: 04/09/18 15:27 Freq: Status: Active Protocol: Document 09/02/18 13:45 DCW (Rec: 09/02/18 14:30 DCW [id number]) Out-Patient Physical Therapy Visit Information Visit Information Visit Type Treatment Note Visit Start Time 13:45 Visit Stop Time 14:30 Total Visit Minutes 45 Visit Number 7 Number of PIT FURNACE OPERATOR Visits 0 Evaluation Information Evaluation Date 04/09/18 PT-OP-B Current Condition Start: 04/09/18 15:27 Freq: Status: Active Protocol: Document 04/09/18 14:35 DCW (Rec: 04/09/18 15:57 DCW [id number]) Current Condition History of Current Condition Onset Date 1 year Current Complaints ALS, Gait difficulty, weakness , fatigue History of Current Condition Pt is a 42 year old male diagnosed with ALS six months ago, although admits that he now realizes he had symptoms back last summer. Reports that his weakness began in his hands with counseling services director strength and fine motor skills, but now he feels like his walking is stiff and Frankenstein-like. Notes he is slower and unable to run, and he'll catch his foot occasionally. Pt also notes that he will occasionally feel like his knee is about to give out, especially when descending stairs. Pt reports he has noticed trouble getting up off the ground, particularly last winter when snowboarding. Pt stays active, trying to walk or ride his bike daily, and wants to continue snowboarding this winter, although his mother, who was present for the evaluation, is not thrilled with that idea. 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 Notes that even though I'm up and walking around without falling , and can still ride my bike, it's still a far cry from what I was doing before. Treatment Goals Patient/Caregiver Goals I hadn't really thought about any sort of goal. They told me to come to PT, so I'm here. I didn't even know what ALS was a year ago, so I'm still trying to figure a lot of things out. 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 Baseline Function- Recreation/Hobbies Motocross, snowboarding, bike riding PT-OP-C Subjective Start: 04/09/18 15:27 Freq: Status: Active Protocol: Document 09/02/18 13:45 DCW (Rec: 09/02/18 14:30 DCW [id number]) OP-PT Subjective Patient Comments Patient Comments Pt reports he does not think there have been any changes since he was here last, other than a little more tremor in his left PT-OP-D Balance Start: 04/09/18 15:27 Freq: Status: Active Protocol: Document 07/15/18 12:15 DCW (Rec: 07/15/18 14:40 DCW [id number]) OP-PT Balance Assessment Standing Balance Static Standing Balance Ability Good Dynamic Standing Balance Ability Good Kelly Fall Scale Copyright Permission Leticia FIGUEROA, Leticia RM, Brain [place]. Development of a scale to identify the fall- prone patient. Can J Aging 1989;8;366-7. Donato Kelly (2009). Preventing patient falls. (2nd ed). [place]: [place]. PT-OP-G Mobility & Gait Start: 04/09/18 15:27 Freq: Status: Active Protocol: Document 04/09/18 14:35 DCW (Rec: 04/09/18 15:57 DCW [id number]) OP Mobility Evaluation Transfers Sit to Stand Independent OP Gait Assessment Gait Gait Assistance Required: Independent Distance (Feet) 170 Able to Maintain Weight Bearing Status Yes During Gait Assistive Devices Assistive Device None Orthotic/Prosthetic Devices or Brace: No Gait Deviations General Gait Pattern Decreased Stride Length Lateral Trunk Lean Factors Limiting Gait Function Factors Limiting Gait Function Decreased Strength Comments Gait Comments Ambulates with increased stance time on left, left arm held in protective posturing, lateral lean while turning Stair Climbing Evaluation Evaluation Level of Assist On Stairs Independent Devices Stair Climbing Assistive Devices Left Railing Technique/Endurance Stair Climbing Direction Ascend and Descend Stair Climbing Technique Step Over Step Number of Steps Climbed 3 Stair Climbing Set # Repetitions (reps) 2 PT-OP-J Posture/Palpation/Skin Start: 07/15/18 14:40 Freq: Status: Active Protocol: Document 07/15/18 12:15 DCW (Rec: 07/15/18 14:43 DCW [id number]) Posture Evaluation Position Standing Evaluation View Lateral Head/C-Spine Posture Forward Head T-Spine Posture Increased Kyphosis Shoulder Posture (L) Rounded (R) Rounded Scapula Posture (L) Protracted (R) Protracted PT-OP-K Range of Motion Start: 07/15/18 14:40 Freq: Status: Active Protocol: Document 07/15/18 12:15 DCW (Rec: 07/15/18 14:43 DCW [id number]) Shoulder Goniometric Range of Motion Shoulder Measured in Degrees Right Passive Flexion 180 Abduction 180 Right Active Flexion 58 Abduction 47 Left Passive Flexion 180 Abduction 180 Left Active Flexion 52 Abduction 46 PT-OP-M Strength Start: 04/09/18 15:27 Freq: Status: Active Protocol: Document 07/15/18 12:15 DCW (Rec: 07/15/18 14:40 DCW [id number]) Shoulder Strength Shoulder Manual Muscle Testing Right Flexion 3- Fair- Abduction (C5) 3- Fair- Left Flexion 3- Fair- Abduction (C5) 3- Fair- Hip Strength Hip Manual Muscle Testing Right Flexion (L2) 4 Good Abduction 4 Good Adduction 4 Good Left Flexion (L2) 4 Good Abduction 4 Good Adduction 4 Good Knee Strength Knee Manual Muscle Testing Right Flexion (S2) 4 Good Extension (L3) 4 Good Left Flexion (S2) 4 Good Extension (L3) 4 Good PT-OP-Q Treatments Start: 04/09/18 15:27 Freq: Status: Active Protocol: Document 09/02/18 13:45 DCW (Rec: 09/02/18 14:30 DCW [id number]) Cardio Equipment Upper Body Ergometer (UBE) Duration (Minutes) 5 RPM 60 Seat Position 14 Height 3 Gym Equipment Shuttle Balance Red Details Wide ESTEPHANIA (EO/EC, vs perturbation), Staggered Stance /c ball toss Sport Cord Black Exercise Details Fwd/Bkwd Ambulation Cord/Resistance Black Therapeutic Exercises Standing Exercises Shoulder Horiz Abd Standing Exercise Name Horiz Abd Side bilateral Resistance Lv 2 Equipment Used T-band Wall snow angels Standing Exercise Name Wall snow angels Toe-taps Standing Exercise Name [place]-taps Side bilateral Resistance 5# Equipment Used 8 step Comments 60->70/sec tempo, 4 step 90/ sec Corner/Door stretch Standing Exercise Name Corner stretch Other Exercises Resisted Side-stepping Other Exercise Name Resisted side-stepping Side bilateral Resistance Green Equipment Used T-band PT-OP-T Assessment and Plan Start: 04/09/18 15:27 Freq: Status: Active Protocol: Document 09/02/18 13:45 DCW (Rec: 09/02/18 14:30 DCW [id number]) Physical Therapy Assessment Impairments Impairments Activity Tolerance Balance Coordination Gait Strength Goals Three Impairment Activity tolerance Short Term Goal (STG) Pt to ride bike 3x/week for at least 30 minutes STG Duration 08/15/18 Two Impairment Gait Short Term Goal (STG) Pt to display equal stance time during gait bilaterally STG Duration 08/15/18 Research Nurse Goal (LTG) Pt to display no LOB while turning LTG Duration 09/12/18 One Impairment Pt does not have an independent home exercise program Short Term Goal (STG) Pt to be independent and complaint with an appropriate HEP STG Duration 08/15/18 Assessment Summary Assessment Pt admits he has not been doing a lot of his HEP at home , but reports he will work harder on doing it. Physical Therapy Plan Frequency and Duration Frequency of Treatment 1x/Week Duration of Treatment 3 months Plan of Care Start Date 07/15/18 Plan of Care End Date 10/13/18 Therapeutic Interventions Therapeutic Interventions Aquatic Therapy Home Exercise Program Neuromuscular Re-education Patient/Caregiver Education Self-Care/Home Management Soft Tissue Mobilization Therapeutic Activities Therapeutic Exercises Next Visit Focus/Plan Next Note Type Treatment Note Next Visit Plan Advancement of HEP, assessment of function, decrease burden of care
--- NOTE | 2018-09-08 15:17 | PT.OTN ---
Current Diagnoses Amyotrophic lateral sclerosis (09/08/18) Physical Therapy Treatment Note PT-OP-A Visit Information Start: 04/09/18 15:27 Freq: Status: Active Protocol: Document 09/08/18 15:13 EA (Rec: 09/08/18 15:17 EA [id number]) Out-Patient Physical Therapy Visit Information Visit Information Visit Type Treatment Note Visit Start Time 14:30 Visit Stop Time 15:15 Total Visit Minutes 38 Visit Number [address] LIGHT INSPECTOR Visits 0 PT-OP-B Current Condition Start: 04/09/18 15:27 Freq: Status: Active Protocol: Document 04/09/18 14:35 DCW (Rec: 04/09/18 15:57 DCW [id number]) Current Condition History of Current Condition Onset Date 1 year Current Complaints ALS, Gait difficulty, weakness , fatigue History of Current Condition Pt is a 42 year old male diagnosed with ALS six months ago, although admits that he now realizes he had symptoms back last summer. Reports that his weakness began in his hands with copy worker strength and fine motor skills, but now he feels like his walking is stiff and Frankenstein-like. Notes he is slower and unable to run, and he'll catch his foot occasionally. Pt also notes that he will occasionally feel like his knee is about to give out, especially when descending stairs. Pt reports he has noticed trouble getting up off the ground, particularly last winter when snowboarding. Pt stays active, trying to walk or ride his bike daily, and wants to continue snowboarding this winter, although his mother, who was present for the evaluation, is not thrilled with that idea. 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 Notes that even though I'm up and walking around without falling , and can still ride my bike, it's still a far cry from what I was doing before. Treatment Goals Patient/Caregiver Goals I hadn't really thought about any sort of goal. They told me to come to PT, so I'm here. I didn't even know what ALS was a year ago, so I'm still trying to figure a lot of things out. 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 Baseline Function- Recreation/Hobbies Motocross, snowboarding, bike riding PT-OP-C Subjective Start: 04/09/18 15:27 Freq: Status: Active Protocol: Document 09/08/18 15:13 EA (Rec: 09/08/18 15:17 EA [id number]) OP-PT Subjective Patient Comments Patient Comments Pt reports unable to perform HEP; reports no fall in the past weeks. PT-OP-D Balance Start: 04/09/18 15:27 Freq: Status: Active Protocol: Document 07/15/18 12:15 DCW (Rec: 07/15/18 14:40 DCW [id number]) OP-PT Balance Assessment Standing Balance Static Standing Balance Ability Good Dynamic Standing Balance Ability Good Kelly Fall Scale Copyright Permission Leticia FIGUEROA, Leticia RM, Brain S[place]. Development of a scale to identify the fall- prone patient. Can J Aging 1989;8;366-7. Donato Kelly (2009). Preventing patient falls. (2nd ed). [place]: [place]. PT-OP-G Mobility & Gait Start: 04/09/18 15:27 Freq: Status: Active Protocol: Document 04/09/18 14:35 DCW (Rec: 04/09/18 15:57 DCW [id number]) OP Mobility Evaluation Transfers Sit to Stand Independent OP Gait Assessment Gait Gait Assistance Required: Independent Distance (Feet) 170 Able to Maintain Weight Bearing Status Yes During Gait Assistive Devices Assistive Device None Orthotic/Prosthetic Devices or Brace: No Gait Deviations General Gait Pattern Decreased Stride Length Lateral Trunk Lean Factors Limiting Gait Function Factors Limiting Gait Function Decreased Strength Comments Gait Comments Ambulates with increased stance time on left, left arm held in protective posturing, lateral lean while turning Stair Climbing Evaluation Evaluation Level of Assist On Stairs Independent Devices Stair Climbing Assistive Devices Left Railing Technique/Endurance Stair Climbing Direction Ascend and Descend Stair Climbing Technique Step Over Step Number of Steps Climbed 3 Stair Climbing Set # Repetitions (reps) 2 PT-OP-J Posture/Palpation/Skin Start: 07/15/18 14:40 Freq: Status: Active Protocol: Document 07/15/18 12:15 DCW (Rec: 07/15/18 14:43 DCW [id number]) Posture Evaluation Position Standing Evaluation View Lateral Head/C-Spine Posture Forward Head T-Spine Posture Increased Kyphosis Shoulder Posture (L) Rounded (R) Rounded Scapula Posture (L) Protracted (R) Protracted PT-OP-K Range of Motion Start: 07/15/18 14:40 Freq: Status: Active Protocol: Document 07/15/18 12:15 DCW (Rec: 07/15/18 14:43 DCW [id number]) Shoulder Goniometric Range of Motion Shoulder Measured in Degrees Right Passive Flexion 180 Abduction 180 Right Active Flexion 58 Abduction 47 Left Passive Flexion 180 Abduction 180 Left Active Flexion 52 Abduction 46 PT-OP-M Strength Start: 04/09/18 15:27 Freq: Status: Active Protocol: Document 07/15/18 12:15 DCW (Rec: 07/15/18 14:40 DCW [id number]) Shoulder Strength Shoulder Manual Muscle Testing Right Flexion 3- Fair- Abduction (C5) 3- Fair- Left Flexion 3- Fair- Abduction (C5) 3- Fair- Hip Strength Hip Manual Muscle Testing Right Flexion (L2) 4 Good Abduction 4 Good Adduction 4 Good Left Flexion (L2) 4 Good Abduction 4 Good Adduction 4 Good Knee Strength Knee Manual Muscle Testing Right Flexion (S2) 4 Good Extension (L3) 4 Good Left Flexion (S2) 4 Good Extension (L3) 4 Good PT-OP-Q Treatments Start: 04/09/18 15:27 Freq: Status: Active Protocol: Document 09/08/18 15:13 EA (Rec: 09/08/18 15:17 EA [id number]) Cardio Equipment Upper Body Ergometer (UBE) Duration (Minutes) 5 RPM 60 Seat Position 14 Height 3 Gym Equipment Shuttle Balance Red Details Wide ESTEPHANIA (EO/EC, vs perturbation), Staggered Stance /c ball toss Sport Cord Black Exercise Details Fwd/Bkwd Ambulation Cord/Resistance Black Therapeutic Exercises Supine Exercises Single KtC Supine Exercise Name Single KtC Side bilateral Standing Exercises Shoulder Horiz Abd Standing Exercise Name Horiz Abd Side bilateral Resistance Lv 2 Equipment Used T-band Wall snow angels Standing Exercise Name Wall snow angels Toe-taps Standing Exercise Name [place]-taps Side bilateral Resistance 5# Equipment Used 8 step Comments 60->70/sec tempo, 4 step 90/ sec Corner/Door stretch Standing Exercise Name Corner stretch Other Exercises Resisted Side-stepping Other Exercise Name Resisted side-stepping Side bilateral Resistance Green Equipment Used T-band PT-OP-T Assessment and Plan Start: 04/09/18 15:27 Freq: Status: Active Protocol: Document 09/08/18 15:13 EA (Rec: 09/08/18 15:17 EA [id number]) Physical Therapy Assessment Assessment Summary Assessment Pt requires constant postural cues with standing exercises. Physical Therapy Plan Next Visit Focus/Plan Next Note Type Treatment Note
--- NOTE | 2019-01-14 10:03 | PT.OTN ---
Current Diagnoses Amyotrophic lateral sclerosis (09/08/18) Physical Therapy Treatment Note PT-OP-A Visit Information Start: 04/09/18 15:27 Freq: Status: Active Protocol: Document 09/08/18 15:13 EA (Rec: 09/08/18 15:17 EA [id number]) Out-Patient Physical Therapy Visit Information Visit Information Visit Type Treatment Note Visit Start Time 14:30 Visit Stop Time 15:15 Total Visit Minutes 38 Visit Number 8 Number of TUNNEL WORKER Visits 0 PT-OP-B Current Condition Start: 04/09/18 15:27 Freq: Status: Active Protocol: Document 04/09/18 14:35 DCW (Rec: 04/09/18 15:57 DCW [id number]) Current Condition History of Current Condition Onset Date 1 year Current Complaints ALS, Gait difficulty, weakness , fatigue History of Current Condition Pt is a 42 year old male diagnosed with ALS six months ago, although admits that he now realizes he had symptoms back last summer. Reports that his weakness began in his hands with corn sheller strength and fine motor skills, but now he feels like his walking is stiff and Frankenstein-like. Notes he is slower and unable to run, and he'll catch his foot occasionally. Pt also notes that he will occasionally feel like his knee is about to give out, especially when descending stairs. Pt reports he has noticed trouble getting up off the ground, particularly last winter when snowboarding. Pt stays active, trying to walk or ride his bike daily, and wants to continue snowboarding this winter, although his mother, who was present for the evaluation, is not thrilled with that idea. 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 Notes that even though I'm up and walking around without falling , and can still ride my bike, it's still a far cry from what I was doing before. Treatment Goals Patient/Caregiver Goals I hadn't really thought about any sort of goal. They told me to come to PT, so I'm here. I didn't even know what ALS was a year ago, so I'm still trying to figure a lot of things out. 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 Baseline Function- Recreation/Hobbies Motocross, snowboarding, bike riding PT-OP-C Subjective Start: 04/09/18 15:27 Freq: Status: Active Protocol: Document 09/08/18 15:13 EA (Rec: 09/08/18 15:17 EA [id number]) OP-PT Subjective Patient Comments Patient Comments Pt reports unable to perform HEP; reports no fall in the past weeks. PT-OP-D Balance Start: 04/09/18 15:27 Freq: Status: Active Protocol: Document 07/15/18 12:15 DCW (Rec: 07/15/18 14:40 DCW [id number]) OP-PT Balance Assessment Standing Balance Static Standing Balance Ability Good Dynamic Standing Balance Ability Good Kelly Fall Scale Copyright Permission PT-OP-G Mobility & Gait Start: 04/09/18 15:27 Freq: Status: Active Protocol: Document 04/09/18 14:35 DCW (Rec: 04/09/18 15:57 DCW [id number]) OP Mobility Evaluation Transfers Sit to Stand Independent OP Gait Assessment Gait Gait Assistance Required: Independent Distance (Feet) 170 Able to Maintain Weight Bearing Status Yes During Gait Assistive Devices Assistive Device None Orthotic/Prosthetic Devices or Brace: No Gait Deviations General Gait Pattern Decreased Stride Length Lateral Trunk Lean Factors Limiting Gait Function Factors Limiting Gait Function Decreased Strength Comments Gait Comments Ambulates with increased stance time on left, left arm held in protective posturing, lateral lean while turning Stair Climbing Evaluation Evaluation Level of Assist On Stairs Independent Devices Stair Climbing Assistive Devices Left Railing Technique/Endurance Stair Climbing Direction Ascend and Descend Stair Climbing Technique Step Over Step Number of Steps Climbed 3 Stair Climbing Set # Repetitions (reps) 2 PT-OP-J Posture/Palpation/Skin Start: 07/15/18 14:40 Freq: Status: Active Protocol: Document 07/15/18 12:15 DCW (Rec: 07/15/18 14:43 DCW [id number]) Posture Evaluation Position Standing Evaluation View Lateral Head/C-Spine Posture Forward Head T-Spine Posture Increased Kyphosis Shoulder Posture (L) Rounded (R) Rounded Scapula Posture (L) Protracted (R) Protracted PT-OP-K Range of Motion Start: 07/15/18 14:40 Freq: Status: Active Protocol: Document 07/15/18 12:15 DCW (Rec: 07/15/18 14:43 DCW [id number]) Shoulder Goniometric Range of Motion Shoulder Right Passive Flexion 180 Abduction 180 Right Active Flexion 58 Abduction 47 Left Passive Flexion 180 Abduction 180 Left Active Flexion 52 Abduction 46 PT-OP-M Strength Start: 04/09/18 15:27 Freq: Status: Active Protocol: Document 07/15/18 12:15 DCW (Rec: 07/15/18 14:40 DCW [id number]) Shoulder Strength Shoulder Manual Muscle Testing Right Flexion 3- Fair- Abduction (C5) 3- Fair- Left Flexion 3- Fair- Abduction (C5) 3- Fair- Hip Strength Hip Manual Muscle Testing Right Flexion (L2) 4 Good Abduction 4 Good Adduction 4 Good Left Flexion (L2) 4 Good Abduction 4 Good Adduction 4 Good Knee Strength Knee Manual Muscle Testing Right Flexion (S2) 4 Good Extension (L3) 4 Good Left Flexion (S2) 4 Good Extension (L3) 4 Good PT-OP-Q Treatments Start: 04/09/18 15:27 Freq: Status: Active Protocol: Document 09/08/18 15:13 EA (Rec: 09/08/18 15:17 EA [id number]) Cardio Equipment Upper Body Ergometer (UBE) Duration (Minutes) 5 RPM 60 Seat Position 14 Height 3 Gym Equipment Shuttle Balance Red Details Wide ESTEPHANIA (EO/EC, vs perturbation), Staggered Stance /c ball toss Sport Cord Black Exercise Details Fwd/Bkwd Ambulation Cord/Resistance Black Therapeutic Exercises Supine Exercises Single KtC Supine Exercise Name Single KtC Side bilateral Standing Exercises Shoulder Horiz Abd Standing Exercise Name Horiz Abd Side bilateral Resistance Lv 2 Equipment Used T-band Wall snow angels Standing Exercise Name Wall snow angels Toe-taps Standing Exercise Name [place]-taps Side bilateral Resistance 5# Equipment Used 8 step Comments 60->70/sec tempo, 4 step 90/ sec Corner/Door stretch Standing Exercise Name Corner stretch Other Exercises Resisted Side-stepping Other Exercise Name Resisted side-stepping Side bilateral Resistance Green Equipment Used T-band PT-OP-T Assessment and Plan Start: 04/09/18 15:27 Freq: Status: Active Protocol: Document 01/14/19 10:01 DCW (Rec: 01/14/19 10:03 DCW [id number]) Physical Therapy Assessment Impairments Impairments Activity Tolerance Balance Coordination Gait Strength Goals Three Impairment Activity tolerance Short Term Goal (STG) Pt to ride bike 3x/week for at least 30 minutes STG Duration 08/15/18 Two Impairment Gait Short Term Goal (STG) Pt to display equal stance time during gait bilaterally STG Duration 08/15/18 Half-Way Goal (LTG) Pt to display no LOB while turning LTG Duration 09/12/18 One Impairment Pt does not have an independent home exercise program Short Term Goal (STG) Pt to be independent and complaint with an appropriate HEP STG Duration 08/15/18 Assessment Summary Assessment Pt has not been seen in more than four months, and will be discharged at this time. Pt is planning to return to skilled PT with a new referral in the near future. Physical Therapy Plan Frequency and Duration Frequency of Treatment 1x/Week Duration of Treatment 3 months Plan of Care Start Date 07/15/18 Plan of Care End Date 10/13/18 Therapeutic Interventions Therapeutic Interventions Aquatic Therapy Home Exercise Program Neuromuscular Re-education Patient/Caregiver Education Self-Care/Home Management Soft Tissue Mobilization Therapeutic Activities Therapeutic Exercises Discharge Physical Therapy Discharge Reasons No Longer Attending PT Next Visit Focus/Plan Next Note Type Discharge Summary
== END 2019-01-21 13:54 | disposition home or self-care (01) ==
LOC: PHYS 14:30
PROVIDERS: PCP Internal Medicine; Visit Provider Physician Assistant
DX: G12.21 Amyotrophic lateral sclerosis (principal)
CPT/HCPCS: 97110; 97112; 97162

== ENCOUNTER 2018-10-12 14:11 | Emergency (ER) | payer OTHER, MEDICARE, SELFPAY ==
[2018-10-12 14:18] VITALS: BP 125/70; PULSE 79; RESP 20; TEMP 36.6; O2SAT 98
--- NOTE | 2018-10-12 14:24 | ED.FALL ---
HPI - Fall <Dorys Gimenez PA-C - Last Filed: 10/12/18 21:42> General Chief Complaint: Fall Stated Complaint: FELL,HIT FACE Time Seen by Provider: 10/12/18 14:24 Source: patient Mode of arrival: ambulatory Limitations: no limitations History of Present Illness HPI Narrative: This 43-year-old gentleman states that he tripped over something on the floor and pitched forward, falling face 1st onto the wooden kitchen floor couple of hours ago. He states that he did not have time to brace and fell on his frontal area and nose. He denies any LOC. He states he has a mild headache, was actually more severe earlier. He denies any vision change. He denies any nausea or vomiting. his nose was bleeding quite a bit at 1st but now has stopped. He states he can breathe okay through his nose. he does have a history of ALS and tends to have some fatigue normally but family states he seems at baseline for this time of day. He states that he is not feeling any different than usual. Related Data Home Medications Medication Instructions Recorded Confirmed baclofen 10 mg PO TID 10/12/18 10/12/18 dextromethorphan-quinidine 1 cap PO BID 10/12/18 10/12/18 [Nuedexta] magnesium oxide 400 mg PO DAILY 10/12/18 10/12/18 mexiletine 150 mg PO QAM 10/12/18 10/12/18 mexiletine 300 mg PO QPM 10/12/18 10/12/18 riluzole 50 mg PO BID 10/12/18 10/12/18 Allergies Allergy/AdvReac Type Severity Reaction Status Date / Time Penicillins Allergy Verified 10/12/18 14:21 Sulfa (Sulfonamide Allergy Verified 10/12/18 14:21 Antibiotics) Review of Systems <Dorys Gimenez PA-C - Last Filed: 10/12/18 21:42> Review of Systems ROS Unobtainable: All systems reviewed & are unremarkable except as noted in HPI and below Exam <Dorys Gimenez PA-C - Last Filed: 10/12/18 21:42> Narrative Exam Narrative: GENERAL APPEARANCE: Patient sitting comfortably, in no distress. HEENT: PERRL, EOMI, normal TMs and oropharynx. There is no hematoma over the scalp. No ecchymoses. Central frontal area superior to the nose there are some barely visible superficial linear abrasions. There is dried, clotted blood in both nares and inferior to the nose. Nares are patent. nose is edematous in general and there is a barely visible abrasion across the bridge. There the is no facial bony tenderness or palpable deformity NECK: Supple LUNGS: Clear to auscultation bilaterally. HEART: Rate and rhythm regular without murmur, normal S1 and S2, no S3 or S4. NEUROLOGIC: Alert and oriented, speech appropriate, slightly dysarthric, normal coordination. MUSCULOSKELETAL: Full Csp AROM Initial Vital Signs Initial Vital Signs: Vital Signs Temperature 97.9 F 10/12/18 14:18 Pulse Rate 79 10/12/18 14:18 Respiratory Rate 20 10/12/18 14:18 Blood Pressure 125/70 10/12/18 14:18 Pulse Oximetry 98 10/12/18 14:18 <Logan Yao DO - Last Filed: 10/13/18 07:16> Initial Vital Signs Initial Vital Signs: Vital Signs Temperature 97.9 F 10/12/18 14:18 Pulse Rate 79 10/12/18 14:18 Respiratory Rate 20 10/12/18 14:18 Blood Pressure 125/70 10/12/18 14:18 Pulse Oximetry 98 10/12/18 14:18 PFSH <Dorys Gimenez PA-C - Last Filed: 10/12/18 21:42> Medical History (Updated 10/12/18 @ 15:23 by Dorys Gimenez PA-C) ALS (amyotrophic lateral sclerosis) (Chronic) HTN (hypertension) (Chronic) Surgical History (Updated 10/12/18 @ 14:45 by Dorys Gimenez PA-C) S/P ORIF (open reduction internal fixation) fracture (Resolved) Social History (Updated 10/12/18 @ 14:45 by Dorys Gimenez PA-C) Smoking Status: Never smoker Social History (Updated 10/12/18 @ 14:45 by Dorys Gimenez PA-C) Smoking Status: Never smoker Course <Dorys Gimenez PA-C - Last Filed: 10/12/18 21:42> Additional Information: Patient has patent nares, no evidence of acute facial bone fracture or head injury on exam. He is feeling at baseline. Advised monitoring and return if any acute changes. Orders Ordered: Discontinued Medications Diphtheria/Tetanus/Acell Pertussis (Adacel) 0.5 ml IM .ONCE ONE Stop: 10/12/18 14:43 Last Admin: 10/12/18 14:54 Dose: 0.5 ml Vital Signs - 8 hr 10/12/18 14:18 10/12/18 15:00 10/12/18 15:35 Temperature 97.9 F Pulse Rate 79 54 L 60 Respiratory Rate 20 Blood Pressure 125/70 Blood Pressure [Right Arm] 108/73 119/96 H Pulse Oximetry 98 95 95 <Logan Yao DO - Last Filed: 10/13/18 07:16> Orders Ordered: Discontinued Medications Diphtheria/Tetanus/Acell Pertussis (Adacel) 0.5 ml IM .ONCE ONE Stop: 10/12/18 14:43 Last Admin: 10/12/18 14:54 Dose: 0.5 ml Vital Signs - 8 hr 10/12/18 14:18 10/12/18 15:00 10/12/18 15:35 Temperature 97.9 F Pulse Rate 79 54 L 60 Respiratory Rate 20 Blood Pressure 125/70 Blood Pressure [Right Arm] 108/73 119/96 H Pulse Oximetry 98 95 95 Discharge Plan Departure Patient Disposition: Home Clinical Impression: Contusion of scalp, face, or neck, excluding eyes Discharge Date/Time: 10/12/18 15:46 Interventions: ED Discharge Assessment Last Done: 10/12/18 15:35 Instructions: DI for Nosebleed Activity Restrictions/Additional Instructions: Please return as we talked about if you have acute changes or worsening symptoms, i.e. severe headache, new vision change or vomiting, prolonged nose bleed or difficulty breathing. Otherwise, avoid bumping or blowing your nose for the next couple of days. You have some swelling but you do not appear to have any bones out of place or disruption in your breathing. It is possible that you got a mild concussion even though you did not pass out, so take Tylenol as needed for pain and rest in a quiet place today and tomorrow (avoid loud noise, screen time etc). See your PCP in a few days for recheck. We have updated your tetanus and pertussis vaccine today as well. Prescriptions: No Action baclofen 10 mg tablet 10 mg PO TID RF: 0 mexiletine 150 mg capsule 300 mg PO QPM RF: 0 riluzole 50 mg tablet 50 mg PO BID RF: 0 Nuedexta 20-10 mg capsule 1 cap PO BID RF: 0 mexiletine 150 mg capsule 150 mg PO QAM RF: 0 magnesium oxide 400 mg Capsule 400 mg PO DAILY RF: 0 Referrals: Morgan Otero MD [Primary Care Provider] - <Logan Yao DO - Last Filed: 10/13/18 07:16> Cosign ED Attending Apoorva Attestation: I was available for consultation during this patient's emergency department encounter
[2018-10-12] MEDS: TET,DIPH,PERTUSS(ACELL),VAC/PF 0.5 ML SYRINGE IM (14:54)
[2018-10-12 15:00] VITALS: BP 108/73; PULSE 54; O2SAT 95
[2018-10-12 15:35] VITALS: BP 119/96; PULSE 60; O2SAT 95
== END 2018-10-12 15:46 | disposition home or self-care (01) ==
PROVIDERS: Emergency Provider Internal Medicine; PCP Internal Medicine
DX: S00.03XA Contusion of scalp, initial encounter (principal); S00.83XA Contusion of other part of head, initial encounter; W19.XXXA Unspecified fall, initial encounter; R04.0 Epistaxis
CPT/HCPCS: 90471; 99283; 90715

== ENCOUNTER 2021-03-10 21:53 | Inpatient (IN) | payer OTHER, SELFPAY ==
[2021-03-10 21:54] VITALS: BP 137/92; PULSE 125; RESP 30; TEMP 37.1; O2SAT 88; BMI 19.0
--- NOTE | 2021-03-10 22:00 | ED.SOB ---
HPI - SOB/Dyspnea General Chief Complaint: Shortness of Breath/Dyspnea Stated Complaint: SOB Time Seen by Provider: 03/10/21 21:59 History of Present Illness HPI Narrative: 45M nonsmoker with end stage ALS presents by EMS for increased work of breathing. He has been having increasing difficulty over the past few days and has been working on frequently suctioning without much relief. He uses his own BiPAP at home and has been having episodes in which he drops into the 60% range. She has had trouble getting him above 80% over the course of the day. He is followed by the [facility] and recently had an appointment in which they apparently discussed his increasing difficulties and potential hospice evaluation. He is still a full code. is very much against intubation at first, and requests I speak with neurology immediately. He has had no measured fever. He has had no trauma or injury. He has had no change in medications. Related Data Home Medications Medication Instructions Recorded Confirmed baclofen 10 mg tablet 10 mg FEEDING TUBE TID 10/12/18 03/11/21 dextromethorphan 20 mg-quinidine 1 cap FEEDING TUBE BID 10/12/18 03/11/21 10 mg capsule mexiletine 150 mg capsule 300 mg FEEDING TUBE QAM 10/12/18 03/11/21 mexiletine 150 mg capsule 300 mg FEEDING TUBE QPM 10/12/18 03/11/21 riluzole 50 mg tablet 50 mg FEEDING TUBE Q12H 10/12/18 03/11/21 atropine 1 % eye drops 1 - 2 drp PO Q4-6H PRN 03/11/21 03/11/21 diazepam 10 mg tablet 10 mg FEEDING TUBE TID 03/11/21 03/11/21 docusate sodium 100 mg tablet 100 mg PO BID 03/11/21 03/11/21 gabapentin 300 mg capsule 300 mg FEEDING TUBE BID 03/11/21 03/11/21 glycopyrrolate 1 mg tablet 1 mg FEEDING TUBE TID PRN 03/11/21 03/11/21 guaifenesin 400 mg tablet 1,200 mg PO BID 03/11/21 03/11/21 tramadol 50 mg tablet 50 mg FEEDING TUBE Q6H PRN 03/11/21 03/11/21 Allergies Allergy/AdvReac Type Severity Reaction Status Date / Time Penicillins Allergy Verified 10/12/18 14:21 Sulfa (Sulfonamide Allergy Verified 10/12/18 14:21 Antibiotics) Review of Systems Review of Systems Narrative: GENERAL: Denies chills, fatigue, malaise, fever, sweats. HEENT: Denies sinus pain, ear pain, sore throat, difficulty swallowing, dizziness. RESPIRATORY: See HPI CARDIOVASCULAR: Denies chest pain, palpitations, orthopnea, edema, GASTROINTESTINAL: Denies nausea, vomiting, abdominal pain, diarrhea, constipation, melena. : Denies dysuria, frequency, incontinence, hematuria, urinary retention. MUSCULOSKELETAL: denies weakness, joint pain, or bony pain SKIN: Denies rash, skin lesions, or other NEUROLOGIC: See HPI PSYCHIATRIC: No concerning psychosocial issues. 12 point review of systems is negative except for those stated above Patient History Medical History ALS (amyotrophic lateral sclerosis) HTN (hypertension) Surgical History S/P ORIF (open reduction internal fixation) fracture Social History household members: spouse Smoking Status: Never smoker alcohol intake: never Smoking Status: Never smoker Exam Narrative Exam Narrative: GENERAL: [45 year old patient appears older than stated age. Chronically ill and in significant distress, wet sounding, weak cough. Thin, temporal wasting HEAD: Atraumatic. Normocephalic. EYES: Pupils equal round and reactive. Extraocular motions intact. No scleral icterus. No injection or drainage. ENT: Dry membranes. Nose without bleeding, purulent drainage. Throat without erythema, tonsillar hypertrophy or exudate. Airway patent. NECK: Trachea midline. Non tender CARDIOVASCULAR: Regular rate and rhythm without murmurs, gallops, or rubs. RESPIRATORY: Harsh sounding cough, GASTROINTESTINAL: Abdomen soft, non-tender, nondistended. EXTREMITIES: No edema or joint tenderness. BACK: Nontender without deformity or crepitance. No flank tenderness. SKIN: No rash or erythema of visible areas Initial Vital Signs Initial Vital Signs: Vital Signs Temperature 98.8 F 03/10/21 21:54 Pulse Rate 125 H 03/10/21 21:54 Respiratory Rate 30 H 03/10/21 21:54 Blood Pressure 137/92 H 03/10/21 21:54 Pulse Oximetry 88 L 03/10/21 21:54 Course Course Course Narrative: Early in the course I placed a call to the [facility] neurology was able to review the patient's records and verifies that they recently had an appointment in talked about options such as palate of care am hospice. She strongly recommends against intubation, suggesting that he likely would be on the vent for the remainder of his life and this will not change the course of the disease Orders Ordered: ED Orders 03/11/21 08:06 Arterial Blood Gas Stat Baclofen (Baclofen 10 Mg Tablet) 10 mg TUBE TID ROGELIO Enoxaparin Sodium (Enoxaparin 40 Mg/0.4 Ml Syringe) 40 mg SUBCUT DAILY ROGELIO Gabapentin (Gabapentin 300 Mg Capsule) 300 mg PO BID ROGELIO Sodium Chloride (Normal Saline 0.9%) 1,000 mls @ 125 mls/hr IV CONT ROGELIO Last Infusion: 03/11/21 14:32 Dose: 125 mls/hr Documented by: Admin: 03/11/21 10:04 Dose: 75 mls/hr Documented by: LORAINE Levofloxacin (Levaquin) 750 mg in 150 mls @ 100 mls/hr IV Q24H ROGELIO Last Infusion: 03/11/21 14:32 Dose: 0 mls/hr Documented by: Admin: 03/11/21 12:59 Dose: 100 mls/hr Documented by: LORAINE Lorazepam (Lorazepam 2 Mg/Ml Inj) 1 mg IV Q2HR PRN PRN Reason: Sedation Morphine Sulfate (Morphine 2 Mg/Ml Inj) 2 mg IV Q4HR PRN PRN Reason: pain Last Admin: 03/11/21 10:04 Dose: 2 mg Documented by: LORAINE Naloxone HCl (Naloxone 0.4 Mg/Ml Vial) 0.2 mg IV Q2MIN PRN PRN Reason: Opiate Reversal Scopolamine (Scopolamine 1 Patch) 1 patch TOP Q72H ROGELIO Last Admin: 03/11/21 12:58 Dose: 1 patch Documented by: LORAINE Discontinued Medications Sodium Chloride (Normal Saline 0.9%) 1,000 mls @ 150 mls/hr IV CONT ROGELIO Last Infusion: 03/11/21 05:22 Dose: 0 mls/hr Documented by: Admin: 03/10/21 22:54 Dose: 150 mls/hr Documented by: LILIANE Sodium Chloride (Normal Saline 0.9%) 1,000 mls @ 150 mls/hr IV CONT ROGELIO Last Infusion: 03/11/21 08:10 Dose: 0 mls/hr Documented by: Admin: 03/11/21 05:35 Dose: 150 mls/hr Documented by: MAU Lorazepam (Lorazepam 2 Mg/Ml Inj) 0.5 mg IV NOW ONE Stop: 03/11/21 09:04 Last Admin: 03/11/21 09:07 Dose: 0.5 mg Documented by: LORAINE Tramadol HCl (Tramadol 50 Mg Tablet) 50 mg PO NOW ONE Stop: 03/11/21 05:31 Last Admin: 03/11/21 05:34 Dose: 50 mg Documented by: MAU Reevaluation(s) Reevaluation #1: patient has been seen and evaluated by over to our BiPAP and seems to be doing better. We have done some deep suctioning which is had perhaps a small amount of help Reevaluation #2: Patient remains unchanged in terms of respiratory status continues to be guarded but stable. After discussion with Neurology at /[facility] [place]30 [place] and state they would prefer to be at the [facility] if there is a bed available. Consultations Consultation #1: Discussed with on-call Neurology at the [facility]. She has reviewed the patient's records and strongly encourage is against intubation. All recent notes point towards and stage ALS and discussions with hospice pending Consultation #2: After discussion with family, stating that they are open to the concept of intubation even if it means permanent trach I called back to Neurology. Again the conversation suggest patient would not benefit from a intubation and they strongly recommend against it. There is discussion about potential multidisciplinary approach including evaluation by patient's own neurologist, palliative care, hospice and others at the [facility] if a bed is available. Consultation #3: placed another call to [facility] [place] They had spoken with Neurology who stated their service does not manage bipap and recommended call to MICU. [facility] arranged this call and had the conversation and MICU provider and Transfer will arrange a call between MICU and Neuro to discuss his case and determine if transfer would be of benefit. Recommend we admit here in the mean time. Time: 06:42 Vital Signs Vital signs: Vital Signs - 8 hr 09/05/21 07:30 03/11/21 08:08 Temperature 97.6 F Pulse Rate 108 H 104 H Respiratory Rate 33 H 18 Blood Pressure 118/76 128/88 Pulse Oximetry 94 97 MDM - SOB/Dyspnea Lab Data Result diagrams: 03/10/21 22:44 03/10/21 22:44 Labs: Lab Results 03/10/21 03/10/21 03/10/21 Range/Units 22:00 22:44 22:44 WBC 25.1 H (4.5-11.0) X10^3/uL RBC 4.72 (4.5-5.9) X10^6/uL Hgb 15.1 (13.5-17.5) g/dL Hct 44.9 (41-53) % MCV 95.1 (80-100) fL MCH 32.0 (26-34) PG MCHC 33.6 (30-36) % RDW 13.2 (11.6-14.8) % Plt Count 624 H (150-400) X10^3/uL Neut % (Auto) 82.8 H (50-75) % Lymph % (Auto) 8.8 L (25-40) % [place] % (Auto) 7.8 (3-14) % Eos % (Auto) 0.2 L (2-4) % Baso % (Auto) 0.4 (0-2) % Neut # (Auto) 77545 H (5395-9608) /uL Lymph # (Auto) 2200 (8633-2701) /uL [place] # (Auto) 2000 H (0-900) /uL Eos # (Auto) 0 (0-450) /uL Baso # (Auto) 100 (0-100) /uL D-Dimer 664 H (<230) ng/mL ABG pH (7.35-7.45) ABG pCO2 (35-45) mmHg ABG pO2 (80-100) mmHg ABG HCO3 (22-26) mmol/L ABG Total CO2 (21-31) mmol/L ABG O2 Saturation (95-100) % ABG Base Excess (-2-2) mmol/L FiO2 Sodium (137-145) mmol/L Potassium (3.4-5.1) mmol/L Chloride (98-107) mmol/L Carbon Dioxide (22-32) mmol/L BUN (9-20) mg/dL Creatinine (0.66-1.25) mg/dL Estimated GFR (>60) mL/min BUN/Creatinine Ratio (6-22) Glucose (70-100) mg/dL Lactate (0.7-2.1) mmol/L Calcium (8.4-10.2) mg/dL Magnesium (1.6-2.3) mg/dL Total Bilirubin (0.2-1.3) mg/dL AST (17-59) IU/L ALT (<50) IU/L Alkaline Phosphatase (38-126) U/L Total Creatine Kinase (55-170) U/L CK-MB (CK-2) CK-MB (CK-2) Rel Index Troponin I (0.01-0.034) ng/mL Total Protein (6.3-8.2) g/dL Albumin (3.5-5.0) g/dL Globulin (1.7-4.1) g/dL Albumin/Globulin Ratio (1.0-2.8) SARS-CoV-2 (PCR) Negative (Negative) 03/10/21 03/10/21 03/10/21 Range/Units 22:44 22:44 22:44 WBC (4.5-11.0) X10^3/uL RBC (4.5-5.9) X10^6/uL Hgb (13.5-17.5) g/dL Hct (41-53) % MCV (80-100) fL MCH (26-34) PG MCHC (30-36) % RDW (11.6-14.8) % Plt Count (150-400) X10^3/uL Neut % (Auto) (50-75) % Lymph % (Auto) (25-40) % [place] % (Auto) (3-14) % Eos % (Auto) (2-4) % Baso % (Auto) (0-2) % Neut # (Auto) (2698-7125) /uL Lymph # (Auto) (1744-4433) /uL [place] # (Auto) (0-900) /uL Eos # (Auto) (0-450) /uL Baso # (Auto) (0-100) /uL D-Dimer (<230) ng/mL ABG pH 7.35 (7.35-7.45) ABG pCO2 70.8 H* (35-45) mmHg ABG pO2 63 L (80-100) mmHg ABG HCO3 39 H (22-26) mmol/L ABG Total CO2 41 H (21-31) mmol/L ABG O2 Saturation 89 L (95-100) % ABG Base Excess 14.0 H (-2-2) mmol/L FiO2 64 Sodium (137-145) mmol/L Potassium (3.4-5.1) mmol/L Chloride (98-107) mmol/L Carbon Dioxide (22-32) mmol/L BUN (9-20) mg/dL Creatinine (0.66-1.25) mg/dL Estimated GFR (>60) mL/min BUN/Creatinine Ratio (6-22) Glucose (70-100) mg/dL Lactate 1.9 (0.7-2.1) mmol/L Calcium (8.4-10.2) mg/dL Magnesium 2.2 (1.6-2.3) mg/dL Total Bilirubin (0.2-1.3) mg/dL AST (17-59) IU/L ALT (<50) IU/L Alkaline Phosphatase (38-126) U/L Total Creatine Kinase 24 L (55-170) U/L CK-MB (CK-2) TNP CK-MB (CK-2) Rel Index TNP Troponin I < 0.012 (0.01-0.034) ng/mL Total Protein (6.3-8.2) g/dL Albumin (3.5-5.0) g/dL Globulin (1.7-4.1) g/dL Albumin/Globulin Ratio (1.0-2.8) SARS-CoV-2 (PCR) (Negative) 03/10/21 03/11/21 Range/Units 22:44 08:06 WBC (4.5-11.0) X10^3/uL RBC (4.5-5.9) X10^6/uL Hgb (13.5-17.5) g/dL Hct (41-53) % MCV (80-100) fL MCH (26-34) PG MCHC (30-36) % RDW (11.6-14.8) % Plt Count (150-400) X10^3/uL Neut % (Auto) (50-75) % Lymph % (Auto) (25-40) % [place] % (Auto) (3-14) % Eos % (Auto) (2-4) % Baso % (Auto) (0-2) % Neut # (Auto) (2132-1339) /uL Lymph # (Auto) (2715-1708) /uL [place] # (Auto) (0-900) /uL Eos # (Auto) (0-450) /uL Baso # (Auto) (0-100) /uL D-Dimer (<230) ng/mL ABG pH 7.44 (7.35-7.45) ABG pCO2 54.2 H (35-45) mmHg ABG pO2 134 H (80-100) mmHg ABG HCO3 37 H (22-26) mmol/L ABG Total CO2 38 H (21-31) mmol/L ABG O2 Saturation 99 (95-100) % ABG Base Excess 13.0 H (-2-2) mmol/L FiO2 80 Sodium 140 (137-145) mmol/L Potassium 4.1 (3.4-5.1) mmol/L Chloride 96 L (98-107) mmol/L Carbon Dioxide 38 H (22-32) mmol/L BUN 14 (9-20) mg/dL Creatinine 0.32 L (0.66-1.25) mg/dL Estimated GFR > 60.0 (>60) mL/min BUN/Creatinine Ratio 43.8 H (6-22) Glucose 142 H (70-100) mg/dL Lactate (0.7-2.1) mmol/L Calcium 9.8 (8.4-10.2) mg/dL Magnesium (1.6-2.3) mg/dL Total Bilirubin 0.3 (0.2-1.3) mg/dL AST 30 (17-59) IU/L ALT 23 (<50) IU/L Alkaline Phosphatase 103 (38-126) U/L Total Creatine Kinase (55-170) U/L CK-MB (CK-2) CK-MB (CK-2) Rel Index Troponin I (0.01-0.034) ng/mL Total Protein 7.8 (6.3-8.2) g/dL Albumin 4.0 (3.5-5.0) g/dL Globulin 3.8 (1.7-4.1) g/dL Albumin/Globulin Ratio 1.1 (1.0-2.8) SARS-CoV-2 (PCR) (Negative) Urine Dip Bedside Urine Glucose Negative Bedside Urine Bilirubin - Negative Bedside Urine Ketone - Negative Urine Specific [place] 1.015 Bedside Urine Occult Blood - Negative Bedside Urine pH 6 Bedside Urine Protein - Negative Bedside Urine Urobilinogen +/- 1mg Bedside Urine Nitrite + Positive Bedside Urine Leukocytes - Negative Esterase MDM Narrative Medical decision making narrative: Patient with increased respiratory effort and need for BiPap over the past few days with increased suctioning, no lungs are improving at home. had been struggling to keep sats above the 80s. No indication for intubation, strongly attempting to avoid at this time. Extensive discussions with family, neurology and others regarding the plan moving forward which likely will include hospice and/or palliative care. We have made attempts to arrange for this to happen at the [facility] for continuity of care but at this time they are unable to accommodate, but are actively working on helping develop a plan. Critical Care Time Critical Care Time Critical Care Time: Yes Total Critical Care Time: 60 Attestation: The high probability of a clinically significant, sudden or life threatening deterioration of the [Respiratory] system(s) required my full and direct attention, intervention and personal management. The aggregate critical care time was [60] minutes. This time is in addition to time spent performing reported procedures but includes the following: [x] Data Review and interpretation [x] Patient assessment and monitoring of vital signs [x] Documentation [x] Medication orders and management Discharge Plan Departure Patient Disposition: Admitted As Inpatient Clinical Impression: Respiratory failure, ALS (amyotrophic lateral sclerosis) Admit Date/Time: 03/11/21 08:22 Admit Provider: Deni Vickers
[2021-03-10 22:03] VITALS: PULSE 125; O2SAT 88
[2021-03-10 22:22] LABS: COVID19 -Nasal RAPID Negative (Negative)
[2021-03-10 22:30] VITALS: BP 144/87; PULSE 125; O2SAT 77
--- NOTE | 2021-03-10 22:32 | DI.RAD.S_ITS ---
PROCEDURE: XR CHEST 1V INDICATIONS: Short of breath TECHNIQUE: One view of the chest was acquired. COMPARISON: [facility], CR, XR CHEST MINIMUM 4 VIEWS, 09/23/2017, 16:37. FINDINGS: Surgical changes and devices: None. Lungs and pleura: Poorly defined opacity is seen involving left inferior costophrenic angle. No pneumothorax is seen. Volume loss can be seen on the left side, with elevation of the left hemidiaphragm. No significant right lung abnormality can be seen. Mediastinum: Mediastinal contours appear normal. Heart size is normal. Bones and chest wall: No suspicious bony lesions. Overlying soft tissues appear unremarkable. IMPRESSION: Focal left inferior costophrenic angle opacity seen with left-sided volume loss. Atelectasis is suspected. Differential diagnosis would also infiltrate. If clinically appropriate, a short-term followup chest series (with PA and lateral views) performed in deep inspiration is suggested for further evaluation. Note: No significant discrepancy from the preliminary report. Dictated by: Chuck Lester M.D. on 03/11/2021 at 10:47 Approved by: Chuck Lester M.D. on 03/11/2021 at 10:49
[2021-03-10] MEDS: SODIUM CHLORIDE 0.9% 1,000 ML 150 ML IV (22:54)
--- NOTE | 2021-03-10 22:55 | PC.NURSE ---
of pt was suctioning at bedside, sats dropping to 50%, Dr Lovelace and respiratory called to the room and pt was deep suctioned.
[2021-03-10 23:00] VITALS: BP 144/87; PULSE 128; PULSE 133; RESP 20; RESP 37; RESP 40; TEMP 28; O2SAT 83; O2SAT 94
[2021-03-10 23:12] LABS: Add Manual Diff / Slide Review NO; Basophils Absolute Auto 100 /uL (0-100); Basophils Percent Auto 0.4 % (0-2); Eosinophils Absolute Auto 0 /uL (0-450); Eosinophils Percent Auto 0.2 % (2-4); Hematocrit 44.9 % (41-53); Hemoglobin 15.1 g/dL (13.5-17.5); Lymphocytes Absolute Auto 2200 /uL (1100-4500); Lymphocytes Percent Auto 8.8 % (25-40); Mean Corpuscular HGB Conc 33.6 % (30-36); Mean Corpuscular Volume 95.1 fL (80-100); Monocytes Absolute Auto 2000 /uL (0-900); Monocytes Percent Auto 7.8 % (3-14); Neutrophils Absolute Auto 20800 /uL (1500-7000); Neutrophils Percent Auto 82.8 % (50-75); Platelet Count 624 X10^3/uL (150-400); Red Blood Cell Count 4.72 X10^6/uL (4.5-5.9); Red Cell Distribution Width 13.2 % (11.6-14.8); White Blood Cell Count 25.1 X10^3/uL (4.5-11.0)
[2021-03-10 23:16] LABS: Creatine Kinase 24 U/L (55-170); Magnesium 2.2 mg/dL (1.6-2.3)
[2021-03-10 23:17] LABS: Alanine Aminotransferase 23 IU/L (<50); Albumin Globulin Ratio 1.1 (1.0-2.8); Alkaline Phosphatase 103 U/L (38-126); Aspartate Aminotransferase 30 IU/L (17-59); BUN Creatinine Ratio 43.8 (6-22); Bilirubin Total 0.3 mg/dL (0.2-1.3); Blood Urea Nitrogen 14 mg/dL (9-20); Calcium 9.8 mg/dL (8.4-10.2); Carbon Dioxide 38 mmol/L (22-32); Chloride 96 mmol/L (98-107); Estimated Glomerular Filt Rate > 60.0 mL/min (>60); Globulin 3.8 g/dL (1.7-4.1); Glucose 142 mg/dL (70-100); HEMOLYSIS < 15 (0-50); Lactate (Lactic Acid) 1.9 mmol/L (0.7-2.1); Potassium 4.1 mmol/L (3.4-5.1); Sodium 140 mmol/L (137-145); Total Protein 7.8 g/dL (6.3-8.2)
[2021-03-10 23:22] LABS: D Dimer 664 ng/mL (<230)
[2021-03-10 23:28] LABS: Troponin I < 0.012 ng/mL (0.01-0.034)
[2021-03-10 23:30] VITALS: PULSE 132; RESP 38; O2SAT 90
[2021-03-11] VITALS (48 sets, daily range): BP systolic 102–158; BP diastolic 64–105; PULSE 101–129; RESP 18–69; TEMP 30.9–37.1; O2SAT 88–98; BMI 17.2
[2021-03-11 01:02] LABS: pH ABG 7.35 (7.35-7.45)
[2021-03-11 01:04] LABS: PCO2 ABG 70.8 mmHg (35-45); PO2 ABG 63 mmHg (80-100)
[2021-03-11 01:05] LABS: Fractionated Inspired Oxygen 64; HCO3 ABG 39 mmol/L (22-26); Oxygen Saturation ABG 89 % (95-100); TCO2 ABG 41 mmol/L (21-31)
--- NOTE | 2021-03-11 01:49 | PM.HP.1 ---
History of Present Illness History of Present Illness Date Patient Seen: 03/11/21 Time Patient Seen: 01:49 Chief complaint: SOB Patient History Medical History (Updated 10/27/18 @ 00:00 by ) ALS (amyotrophic lateral sclerosis) HTN (hypertension) Surgical History (Updated 10/12/18 @ 14:45 by Dorys Gimenez PA-C) S/P ORIF (open reduction internal fixation) fracture Family & Social History Tobacco & Substance use: Smoking Status Never smoker Meds Home Medications and Allergies Home Medications Medication Instructions Recorded Confirmed Type baclofen 10 mg tablet 10 mg PO TID 10/12/18 10/12/18 History dextromethorphan 20 mg-quinidine 1 cap PO BID 10/12/18 10/12/18 History 10 mg capsule magnesium oxide 400 mg PO DAILY 10/12/18 10/12/18 History mexiletine 150 mg capsule 150 mg PO QAM 10/12/18 10/12/18 History mexiletine 150 mg capsule 300 mg PO QPM 10/12/18 10/12/18 History riluzole 50 mg tablet 50 mg PO BID 10/12/18 10/12/18 History Allergies Allergy/AdvReac Type Severity Reaction Status Date / Time Penicillins Allergy Verified 10/12/18 14:21 Sulfa (Sulfonamide Allergy Verified 10/12/18 14:21 Antibiotics) Exam Vital Signs (past 8 hours): - 03/10/21 21:54 03/10/21 22:03 03/10/21 22:30 Temperature 98.8 F Pulse Rate 125 H 125 H 125 H Respiratory Rate 30 H Blood Pressure 137/92 H 144/87 H Pulse Oximetry 88 L 88 L 77 L 03/10/21 23:00 03/10/21 23:30 03/11/21 00:00 Temperature Pulse Rate 133 H 132 H 129 H Respiratory Rate 37 H 38 H 36 H Blood Pressure 144/87 H Pulse Oximetry 83 L 90 L 92 03/11/21 00:09 03/11/21 00:30 03/11/21 01:00 Temperature Pulse Rate 128 H 126 H 126 H Respiratory Rate 40 H 39 H 39 H Blood Pressure Pulse Oximetry 94 94 93 Fraction of Inspired Oxygen 100 Oxygen Delivery Method BiPAP Oxygen Flow Rate 2 Objective Labs Result Diagrams: 03/10/21 22:44 03/10/21 22:44 Labs: Laboratory Results - last 24 hr 03/10/21 03/10/21 03/10/21 22:00 22:44 22:44 WBC 25.1 H RBC 4.72 Hgb 15.1 Hct 44.9 MCV 95.1 MCH 32.0 MCHC 33.6 RDW 13.2 Plt Count 624 H Neut % (Auto) 82.8 H Lymph % (Auto) 8.8 L [place] % (Auto) 7.8 Eos % (Auto) 0.2 L Baso % (Auto) 0.4 Neut # (Auto) 56729 H Lymph # (Auto) 2200 [place] # (Auto) 2000 H Eos # (Auto) 0 Baso # (Auto) 100 D-Dimer 664 H ABG pH ABG pCO2 ABG pO2 ABG HCO3 ABG Total CO2 ABG O2 Saturation ABG Base Excess FiO2 Sodium Potassium Chloride Carbon Dioxide BUN Creatinine Estimated GFR BUN/Creatinine Ratio Glucose Lactate Calcium Magnesium Total Bilirubin AST ALT Alkaline Phosphatase Total Creatine Kinase CK-MB (CK-2) CK-MB (CK-2) Rel Index Troponin I Total Protein Albumin Globulin Albumin/Globulin Ratio SARS-CoV-2 (PCR) Negative 03/10/21 03/10/21 03/10/21 22:44 22:44 22:44 WBC RBC Hgb Hct MCV MCH MCHC RDW Plt Count Neut % (Auto) Lymph % (Auto) [place] % (Auto) Eos % (Auto) Baso % (Auto) Neut # (Auto) Lymph # (Auto) [place] # (Auto) Eos # (Auto) Baso # (Auto) D-Dimer ABG pH 7.35 ABG pCO2 70.8 H* ABG pO2 63 L ABG HCO3 39 H ABG Total CO2 41 H ABG O2 Saturation 89 L ABG Base Excess 14.0 H FiO2 64 Sodium Potassium Chloride Carbon Dioxide BUN Creatinine Estimated GFR BUN/Creatinine Ratio Glucose Lactate 1.9 Calcium Magnesium 2.2 Total Bilirubin AST ALT Alkaline Phosphatase Total Creatine Kinase 24 L CK-MB (CK-2) TNP CK-MB (CK-2) Rel Index TNP Troponin I < 0.012 Total Protein Albumin Globulin Albumin/Globulin Ratio SARS-CoV-2 (PCR) 03/10/21 22:44 WBC RBC Hgb Hct MCV MCH MCHC RDW Plt Count Neut % (Auto) Lymph % (Auto) [place] % (Auto) Eos % (Auto) Baso % (Auto) Neut # (Auto) Lymph # (Auto) [place] # (Auto) Eos # (Auto) Baso # (Auto) D-Dimer ABG pH ABG pCO2 ABG pO2 ABG HCO3 ABG Total CO2 ABG O2 Saturation ABG Base Excess FiO2 Sodium 140 Potassium 4.1 Chloride 96 L Carbon Dioxide 38 H BUN 14 Creatinine 0.32 L Estimated GFR > 60.0 BUN/Creatinine Ratio 43.8 H Glucose 142 H Lactate Calcium 9.8 Magnesium Total Bilirubin 0.3 AST 30 ALT 23 Alkaline Phosphatase 103 Total Creatine Kinase CK-MB (CK-2) CK-MB (CK-2) Rel Index Troponin I Total Protein 7.8 Albumin 4.0 Globulin 3.8 Albumin/Globulin Ratio 1.1 SARS-CoV-2 (PCR) Assessment & Plan Time Spent With Patient Critical Care time: I spent a total of [] minutes of critical care time on this patient's care today; this time is exclusive of procedural time.
[2021-03-11] MEDS: TRAMADOL 50 MG TABLET PO (05:34)
[2021-03-11] MEDS: SODIUM CHLORIDE 0.9% 1,000 ML 150 ML IV (05:35)
[2021-03-11] MEDS: LORazepam 2 MG/ML INJ 0.5 MG IV (09:07)
[2021-03-11 09:11] LABS: PCO2 ABG 54.2 mmHg (35-45); PO2 ABG 134 mmHg (80-100); pH ABG 7.44 (7.35-7.45)
[2021-03-11 09:12] LABS: Fractionated Inspired Oxygen 80; HCO3 ABG 37 mmol/L (22-26); Oxygen Saturation ABG 99 % (95-100); TCO2 ABG 38 mmol/L (21-31)
--- NOTE | 2021-03-11 09:19 | RT ---
Bipap checked, pt uriel well. at bedside, repeat abg drawn and pt transported to ICU 228 without incident on BIPAP. RN at bedside and pt alert
--- NOTE | 2021-03-11 09:22 | RT ---
Called to bedside for sao2 70%. Pt pip increased to 18, BUR to 24 . Pt uriel well, sao2 96% and Fio2 100% but titrated back down to 80%. V.O. on setting changes via Dr. Vickers
[2021-03-11] MEDS: SODIUM CHLORIDE 0.9% 1,000 ML 75 ML IV (10:04)
[2021-03-11] MEDS: MORPHINE 2 MG/ML INJ IV ×2 (10:04→22:00)
--- NOTE | 2021-03-11 11:48 | P.HP_ITS ---
History of Present Illness History of Present Illness Date Patient Seen: 03/11/21 Time Patient Seen: 08:10 Chief complaint: SOB Narrative: This is a 45-year-old male with a past medical history of ALS who is on BiPAP at home who presented with respiratory distress and difficulty with increasing secretions over the past couple of days. His has been working on frequent suctioning without much relief, and despite his home BiPAP he has been having episodes where his O2 saturations dropped into the 60% range. Communicates with eye tracking device where he can type. Communication limited due to need for bipap mask. Extensive goals of care discussion has been performed both in the emergency department and with me with no current decision on whether not intubation would be desired. The patient is currently talking with family. In the emergency room, he was tachycardic and hypertensive, extremely tachypneic. Initial blood gas showed a respiratory acidosis with a pCO2 of 80. This improved to a pCO2 of 54 and no acidosis with initiation of BiPAP. His breathing appeared much more comfortable with Ativan and morphine, and currently has BiPAP has been taken off to facilitate communication for goals of care discussion. He had a leukocytosis with a WBC of 25.1, with 83% neutrophils. D- dimer was 664. Repeat ABG while on BiPAP shows a pCO2 of 56, fairly stable from his previous one. Chemistry evaluation was largely unremarkable. Troponin was negative. COVID-19 testing was negative. Patient History Medical History ALS (amyotrophic lateral sclerosis) HTN (hypertension) Surgical History S/P ORIF (open reduction internal fixation) fracture Family & Social History Social History: household members spouse Prior Living Arrangements House Tobacco & Substance use: Smoking Status Never smoker alcohol intake never Substance Use Type marijuana Comment: unable to confirm family history given patient's limited communication currently. Meds Home Medications and Allergies Home Medications Medication Instructions Recorded Confirmed Type baclofen 10 mg tablet 10 mg FEEDING TUBE TID 10/12/18 03/11/21 History dextromethorphan 20 mg-quinidine 1 cap FEEDING TUBE BID 10/12/18 03/11/21 History 10 mg capsule mexiletine 150 mg capsule 300 mg FEEDING TUBE QAM 10/12/18 03/11/21 History mexiletine 150 mg capsule 300 mg FEEDING TUBE QPM 10/12/18 03/11/21 History riluzole 50 mg tablet 50 mg FEEDING TUBE Q12H 10/12/18 03/11/21 History atropine 1 % eye drops 1 - 2 drp PO Q4-6H PRN 03/11/21 03/11/21 History diazepam 10 mg tablet 10 mg FEEDING TUBE TID 03/11/21 03/11/21 History docusate sodium 100 mg tablet 100 mg PO BID 03/11/21 03/11/21 History gabapentin 300 mg capsule 300 mg FEEDING TUBE BID 03/11/21 03/11/21 History glycopyrrolate 1 mg tablet 1 mg FEEDING TUBE TID PRN 03/11/21 03/11/21 History guaifenesin 400 mg tablet 1,200 mg PO BID 03/11/21 03/11/21 History tramadol 50 mg tablet 50 mg FEEDING TUBE Q6H PRN 03/11/21 03/11/21 History Allergies Allergy/AdvReac Type Severity Reaction Status Date / Time Penicillins Allergy Verified 10/12/18 14:21 Sulfa (Sulfonamide Allergy Verified 10/12/18 14:21 Antibiotics) Review of Systems Review of Systems Narrative: Unable to perform full review of systems given the patient's underlying neurological disorder Exam Vital Signs (past 8 hours): - 03/11/21 04:00 03/11/21 04:30 03/11/21 04:37 Temperature Pulse Rate 115 H 115 H 112 H Respiratory Rate 40 H 62 H 34 H Blood Pressure 123/84 Pulse Oximetry 90 L 91 92 03/11/21 04:42 03/11/21 04:56 03/11/21 05:00 Temperature Pulse Rate 115 H Respiratory Rate 30 H 69 H Blood Pressure 123/84 151/91 H Pulse Oximetry 91 90 L 03/11/21 05:30 03/11/21 06:00 03/11/21 06:30 Temperature Pulse Rate 116 H 116 H 109 H Respiratory Rate 53 H 33 H 30 H Blood Pressure 133/83 102/64 114/76 Pulse Oximetry 88 L 90 L 93 03/11/21 07:00 03/11/21 07:30 03/11/21 08:08 Temperature 97.6 F Pulse Rate 110 H 108 H 104 H Respiratory Rate 30 H 33 H 18 Blood Pressure 117/77 118/76 128/88 Pulse Oximetry 93 94 97 03/11/21 08:30 03/11/21 09:30 03/11/21 10:00 Temperature 97.0 F L Pulse Rate 109 H 120 H 122 H Respiratory Rate 29 H 34 H 34 H Blood Pressure 151/105 H 156/102 H 158/102 H Pulse Oximetry 94 91 89 L 03/11/21 11:00 Temperature Pulse Rate 113 H Respiratory Rate 25 H Blood Pressure 117/81 Pulse Oximetry 93 Fraction of Inspired Oxygen 0.80 Oxygen Delivery Method BiPAP Oxygen Flow Rate 2 Narrative Exam Narrative: GENERAL APPEARANCE: Chronically ill-appearing and thin male, anxious, tachypneic on BiPAP mask, mildly diaphoretic. SKIN: Inspection of the skin reveals no rashes, ulcerations or petechiae. HEENT: Normocephalic atraumatic, extraocular muscles are intact, oropharynx is clear and mucous membranes are dry, neck is supple without adenopathy NECK: Supple and symmetric. There was no thyroid enlargement, and no tenderness, or masses were felt. CHEST: Normal AP diameter and normal contour without any kyphoscoliosis. LUNGS: Auscultation of the lungs revealed decreased air flow over the bilateral lung bases without wheezing. CARDIOVASCULAR: Tachycardic with a regular rhythm, no murmurs, rubs, or gallops. ABDOMEN: Soft, nontender, and nondistended. There is a gastric tube in place. MUSCULOSKELETAL: Muscle atrophy of all extremities, no joint effusions. EXTREMITIES: No cyanosis, clubbing or edema. NEUROLOGIC: Able to communicate via eye tracking device for text, otherwise unable to further assess given his ALS. Objective Imaging Chest x-ray: My impression: Left lower lobe opacity, differential could include mucous plugging, atelectasis, or pneumonia. Radiologist's impression: PROCEDURE:? XR CHEST 1V ? INDICATIONS:? Short of breath ? TECHNIQUE:? One view of the chest was acquired.? ? COMPARISON:? [facility], CR, XR CHEST MINIMUM 4 VIEWS, 09/23/2017, 16:37. ? FINDINGS:? ? Surgical changes and devices:? None.? ? Lungs and pleura:? Poorly defined opacity is seen involving left inferior c ostophrenic angle.? No pneumothorax is seen.? Volume loss can be seen on the left side, with elevation of the left hemidiaphragm.? No significant right lung abnormality can be seen. ? Mediastinum:? Mediastinal contours appear normal.? Heart size is normal.? ? Bones and chest wall:? No suspicious bony lesions.? Overlying soft tissues appear unremarkable.? ? ? IMPRESSION:? Focal left inferior costophrenic angle opacity seen with left-sided volume loss. ? Atelectasis is suspected.? Differential diagnosis would also infiltrate. ? If clinically appropriate, a short-term followup chest series (with PA and lateral views) performed in deep inspiration is suggested for further evaluation.? ? ? Note: No significant discrepancy from the preliminary report.? ? Labs Result Diagrams: 03/10/21 22:44 03/10/21 22:44 Labs: Laboratory Results - last 24 hr 03/10/21 03/10/21 03/10/21 22:00 22:44 22:44 WBC 25.1 H RBC 4.72 Hgb 15.1 Hct 44.9 MCV 95.1 MCH 32.0 MCHC 33.6 RDW 13.2 Plt Count 624 H Neut % (Auto) 82.8 H Lymph % (Auto) 8.8 L [place] % (Auto) 7.8 Eos % (Auto) 0.2 L Baso % (Auto) 0.4 Neut # (Auto) 17326 H Lymph # (Auto) 2200 [place] # (Auto) 2000 H Eos # (Auto) 0 Baso # (Auto) 100 D-Dimer 664 H ABG pH ABG pCO2 ABG pO2 ABG HCO3 ABG Total CO2 ABG O2 Saturation ABG Base Excess FiO2 Sodium Potassium Chloride Carbon Dioxide BUN Creatinine Estimated GFR BUN/Creatinine Ratio Glucose Lactate Calcium Magnesium Total Bilirubin AST ALT Alkaline Phosphatase Total Creatine Kinase CK-MB (CK-2) CK-MB (CK-2) Rel Index Troponin I Total Protein Albumin Globulin Albumin/Globulin Ratio Nasal Screen MRSA (PCR) SARS-CoV-2 (PCR) Negative 03/10/21 03/10/21 03/10/21 22:44 22:44 22:44 WBC RBC Hgb Hct MCV MCH MCHC RDW Plt Count Neut % (Auto) Lymph % (Auto) [place] % (Auto) Eos % (Auto) Baso % (Auto) Neut # (Auto) Lymph # (Auto) [place] # (Auto) Eos # (Auto) Baso # (Auto) D-Dimer ABG pH 7.35 ABG pCO2 70.8 H* ABG pO2 63 L ABG HCO3 39 H ABG Total CO2 41 H ABG O2 Saturation 89 L ABG Base Excess 14.0 H FiO2 64 Sodium Potassium Chloride Carbon Dioxide BUN Creatinine Estimated GFR BUN/Creatinine Ratio Glucose Lactate 1.9 Calcium Magnesium 2.2 Total Bilirubin AST ALT Alkaline Phosphatase Total Creatine Kinase 24 L CK-MB (CK-2) TNP CK-MB (CK-2) Rel Index TNP Troponin I < 0.012 Total Protein Albumin Globulin Albumin/Globulin Ratio Nasal Screen MRSA (PCR) SARS-CoV-2 (PCR) 03/10/21 03/11/21 03/11/21 22:44 08:06 09:00 WBC RBC Hgb Hct MCV MCH MCHC RDW Plt Count Neut % (Auto) Lymph % (Auto) [place] % (Auto) Eos % (Auto) Baso % (Auto) Neut # (Auto) Lymph # (Auto) [place] # (Auto) Eos # (Auto) Baso # (Auto) D-Dimer ABG pH 7.44 ABG pCO2 54.2 H ABG pO2 134 H ABG HCO3 37 H ABG Total CO2 38 H ABG O2 Saturation 99 ABG Base Excess 13.0 H FiO2 80 Sodium 140 Potassium 4.1 Chloride 96 L Carbon Dioxide 38 H BUN 14 Creatinine 0.32 L Estimated GFR > 60.0 BUN/Creatinine Ratio 43.8 H Glucose 142 H Lactate Calcium 9.8 Magnesium Total Bilirubin 0.3 AST 30 ALT 23 Alkaline Phosphatase 103 Total Creatine Kinase CK-MB (CK-2) CK-MB (CK-2) Rel Index Troponin I Total Protein 7.8 Albumin 4.0 Globulin 3.8 Albumin/Globulin Ratio 1.1 Nasal Screen MRSA (PCR) Negative for mrsa SARS-CoV-2 (PCR) Assessment & Plan Assessment & Plan narrative: 1. acute on chronic respiratory failure with hypercarbia and hypoxemia - could be secondary to worsening ALS, pneumonia given leukocytosis, or mucous plugging. - improved somewhat with BiPAP therapy. initial PCO2 of 80 improved to 50s. Looks somewhat to be his baseline based on blood gases. Started on levaquin for possible pneumonia. Discussed that this is likely temporary and given ALS his hypercarbia will likely worsen. Have spent much of the day discussing what intubation would look like, including likely tracheostomy and need for usp care in the setting of still progressive ALS. Family is still discussing what they would like to do, along with input from the patient. later in the afternoon patient appeared fairly comfortable off bipap which facilitated further goals of care discussion with the patient. Family would like the patient ultimately to make the decision. - will recheck ABG q4 hours for now. restart bipap if needed. Intubation highly recommended against by . He had previously been in ducussions for hospice. Have been waiting for disucssion today via transfer center. Ideally family would like to discuss all options with specialist assistance at , discussed today this is unlikely in the short term and his respiratory status is tenuous. I suspect he may need to decide sooner rather than later regarding intubation, but will see over the next few hours. - ideally would transfer to for further goals of care discussions with palliative care, neurology services, and input from critical care. However given current bed situation this is unlikely to happen. 2. ALS, chronic - can continue home medications via feeding tube, likely will need to bring a number of them in as non-formulary medications. 3. possible benzodiazepine withdrawal - patient on 10 mg of diazepam as much as TID, may help to explain some tachypnea, tachycardia though these may be in setting of possible pneumonia as well. Continue ativan IV prn. 4. Possible bacterial pneumonia - as above started on oral levaquin DVT: Lovenox daily Dispo: admit to ICU Code: Currently Full, discussions ongoing as noted above. Surrogate decision maker is patient's spouse and with assistance from mother I spent 65 minutes providing critical care management this patient. This excludes time spent in performing separately billed procedures. I have utilized all available immediate resources to obtain, update, or review the patient's current medications. COVID-19 COVID-19 status: Negative Time Spent With Patient Critical Care time: I spent a total of [] minutes of critical care time on this patient's care today; this time is exclusive of procedural time.
[2021-03-11 11:54] LABS: PCO2 ABG 56.3 mmHg (35-45); PO2 ABG 62 mmHg (80-100); pH ABG 7.41 (7.35-7.45)
[2021-03-11 11:55] LABS: Fractionated Inspired Oxygen 80; HCO3 ABG 36 mmol/L (22-26); Oxygen Saturation ABG 91 % (95-100); TCO2 ABG 37 mmol/L (21-31)
--- NOTE | 2021-03-11 12:32 | PC.NURSE ---
Rec'd pt from ED to room 228 via stretcher on bipap. Pt was transferred from stretcher to bed with 4PA. Pt is unable to move arms/legs and has difficulty with neck/head control. Pt is able to answer simple questions with 1-2 blink (1 for yes, 2 for no) responses, seemingly appropriately. Pt has an electronic communication device that is at bedside but unable to use at this time due to bipap mask. Admission questions answered by spouse who is his primary caregiver. Spouse states pt cannot tolerate being in a flat position and declines placing in flat position to facilitate full skin assessment. Spouse states that pt has areas of the spine that are prone to blanching due to bony prominence. Spouse also reports that pt has a small open area to coccyx that was previously scabbed but then scab was incidentally removed. Unable to perform proper assessment at this time due to spouse declining positioning to do so. Pt noted to have increased work of breathing, rr 50s and SPO2 79% on bipap. Increased FIO2 to 100%, repositioned, and notified Dr. Vickers and RT. Orders received for 1 time does of ativan, q4h abg. Plan is for family conference to discuss goals of care.
--- NOTE | 2021-03-11 12:38 | PC.NURSE ---
Addendum entered by Peterson Brown R.N. 03/11/21 14:30: Notified Dr. Vickers of decreased UOP and bladder scan done showing ~430 ML. Pt not c/o discomfort. Dr. Vickers states will increase IVF rate and instructs to continue to monitor. Original Note: 1230- Pt anxious and attempting to make needs known, but difficult due to bipap mask. After repositioning, bladder scanning, comfort measures; pt remains anxious and unable to make his needs known. Called to RT and asked about O2 modality recommendations to facilitate pt's ability to use his communication device. RT recs high flow NC 15L. Switch pt from bipap to high flow. SPO2 initially 96% but down to 91% after 10 minutes. RR 30s-40s. Pt set up with communication device and is discussing his wishes with his spouse and mom who are at bedside.
[2021-03-11] MEDS: SCOPOLAMINE 1 PATCH TOP (12:58)
[2021-03-11] MEDS: levoFLOXacin 750 MG/150 ML PIGGYBACK 100 MG IV (12:59)
--- NOTE | 2021-03-11 15:18 | CM.IDA ---
Initial DCP Assessment Note Patient is a 45 yo resident of [place], presents w/increased shortness of breath, escalating over the last few weeks, according to spouse Yvonne PCP: Morgan Otero Payer: Lisa PRESTON Patient discussed in morning multidisciplinary rounds, patient just arrived to the ICU this morning from the ED, see extensive notes outlining efforts in the ED. Dr Vickers conducting goals of care conversation w/patient and family. Patient w/end stage ALS, communicates w/via electronic system that allows patient to type with his eyes. KALEB Romero updates this SHEET METAL INSTALLER that decision has not been made; either to intubate (potentially) to protect airway or continue current nasal cannula and transition to comfort management, DNR/DNI. KALEB Romero asks this SHEET METAL INSTALLER to meet with patient and spouse to address questions that have come up re: hospice service. Met w/patient spouse at bedside, introduced role. Spouse Yvonne explains she has been providing almost 8 hrs daily of suctioning to patient over the last 2 weeks which has been very challenging. Patient/spouse received an info visit from [facility] 2 weeks ago. Spouse is concerned about returning home w/o assist and asks what is available through Hospice service? This SHEET METAL INSTALLER attempted to outline the following: -Hospice does not provide 24/7 care giving or nursing assist -Hospice nursing can increase their physical support as needed according to assessment of need when service begins -Current start of care for [facility] (patient/spouse decline [facility]) is end of next week, however, openings can appear quickly according to Sofia hardy [facility] -Explained to patient/family and KALEB Romero that it is difficult to know the extent of patient's symptom management needs and/or DME needs until patient has made the decision to transition to comfort measures and comfort/end of life orders are in place. Hospice medication management would likely alter patient's current dependence on suctioning and oxygen Patient and spouse denied additional needs from this SHEET METAL INSTALLER at this time, appreciative of the visit. Updated RN re: above Will plan to follow closely as medical POC unfolds, to assist in coordination of the safest DCP available to patient. UNIQUE Yun Discharge Planning/Care Management CM Discharge Assessment Start: 03/11/21 15:16 Freq: Status: Active Protocol: Document 03/11/21 15:17 PANCHITO (Rec: 03/11/21 15:18 PANCHITO [id number]) Discharge Planning Assessment Assigned Gift Wrapper UNIQUE Yun DPOA/Assigned Designee Name Yvonne Benton, spouse Contact Information [phone] Advance Directives? No History Provided By Patient,Significant Other Prior Living Arrangements House Household Members spouse Type of transporation used prior to Relies on Others admit Independent with ADL's No Is patient alert and oriented? Yes Barriers to Discharge Yes Comment Unknown at this time. See Narrative
[2021-03-11] MEDS: BACLOFEN 10 MG TABLET TUBE ×2 (16:34→21:00)
--- NOTE | 2021-03-11 16:50 | PC.NURSE ---
1530 - Skin assessment done, Pt turned to Left side and mepelex dressings on back removed and skin inspected. Dime size stage 1 on coccyx noted, smaller area of redness noted just below stage 1; Mid spine area on bony prominence another dime size reddened blanchable area, same noted to bottom of both clavicals and one higher up on the spine. red blanchable areas noted on both elbows. Allevyn dressings placed over all areas. Heels off loaded, no breakdown noted on feet.
[2021-03-11] MEDS: TRAMADOL 50 MG TABLET TUBE (18:07)
[2021-03-11 19:37] LABS: pH ABG 7.42 (7.35-7.45)
[2021-03-11 19:38] LABS: HCO3 ABG 35 mmol/L (22-26); PCO2 ABG 54.3 mmHg (35-45); PO2 ABG 126 mmHg (80-100)
[2021-03-11 19:39] LABS: Fractionated Inspired Oxygen 48; Oxygen Saturation ABG 99 % (95-100); TCO2 ABG 37 mmol/L (21-31)
[2021-03-11] MEDS: SODIUM CHLORIDE 0.9% 1,000 ML 125 ML IV (19:53)
--- NOTE | 2021-03-11 20:17 | PM.EVENT ---
Event Note Event Note: TELEINTENSIVIST MULTIDISCIPLINARY ROUNDS NOTE Case discussed with RN, RT and NEGRA Norris. 45 y.o. male with acute on chronic hypoxic and hypercapneic respiratory failure due to ALS and postulated pneumonia. pCXR reviewed --> no marked infiltrate. There have been efforts to get him to his [facility] team; plans for hospice also underway. RECOMMENDATIONS: 1) Stop IVF given normal creatinine and resumption of feeds 2) Consider checking procalcitonin and if (-) stopping levofloxacin; in interim, levofloxacin can be changed to enteral
[2021-03-11] MEDS: Mexiletine 150 mg capsule 300 EACH TUBE (21:00)
[2021-03-11] MEDS: DEXTROMETHORPHAN QUINIDINE 1 EACH TUBE (21:00)
[2021-03-11] MEDS: GABAPENTIN 300 MG CAPSULE PO (21:00)
[2021-03-11] MEDS: SODIUM CHLORIDE 0.9% FLUSH 10 ML IV (22:01)
--- NOTE | 2021-03-11 22:19 | PC.NURSE ---
2200, Pt placed on bipap for sleep, initially tolerated it poorly. MS 2mg IVP given and pt was able to relax and fall asleep. states that pt has had difficulty acclimating to bipap at home and generally only tolerated for a few hours at a time. Will keep eye on patient while on bipap and remove as necessary. Continues to use communication device to express needs. Positioned for comfort and position changed frequently during shift.
[2021-03-12] VITALS (9 sets, daily range): BP systolic 120–148; BP diastolic 78–94; PULSE 72–105; RESP 16–28; TEMP 36.1–37.1; O2SAT 91–98
[2021-03-12] MEDS: ONDANSETRON 4 MG/2 ML INJ IV (00:22)
--- NOTE | 2021-03-12 05:47 | PC.NURSE ---
When family gives pt a drink of water the way they are used to, family pours in pt mouth and pt tries to slurp it down. Afterwards pt O2 requirement went up from 5L to 10L and still satting worse than before. I told family that this can cause aspiration. Hopefully hey avoid doing it this way anymore.
[2021-03-12 05:50] LABS: Procalcitonin 0.12 ng/mL (<0.5)
[2021-03-12] MEDS: levoFLOXacin 250 MG TABLET 750 MG PO (06:09)
[2021-03-12] MEDS: ENOXAPARIN 40 MG/0.4 ML SYRINGE SUBCUT (08:18)
[2021-03-12] MEDS: DEXTROMETHORPHAN QUINIDINE 1 EACH TUBE ×2 (08:18→20:58)
[2021-03-12] MEDS: GABAPENTIN 300 MG CAPSULE PO ×2 (08:19→20:57)
[2021-03-12] MEDS: BACLOFEN 10 MG TABLET TUBE ×3 (08:19→21:01)
[2021-03-12] MEDS: Mexiletine 150 mg capsule 300 EACH TUBE ×3 (08:45→21:30)
--- NOTE | 2021-03-12 10:40 | DIET.CONS ---
Addendum entered by Kelin Villalta 03/13/21 08:32: Nutrition Dx: Severe Acute on Chronic Protein Calorie Malnutrition r/t late stage ALS aeb 40% unintentional weight loss x2y, BMI 17.2 (underweight), severe muscle and fat losses globally, pt unable to tolerate POs, pt having difficulty tolerating formula feeding via PEG tube at home, admitted for acute on chronic respiratory failure. Original Note: Dietary Consultation Note Admission Date: 03/11/2021 08:22 Assessment: 45y M c late stage ALS admitted for acute on chronic respiratory failure referred to nutrition as pt has PEG tube receiving EN at home of Isosource 1.5. [facility] does not carry Isosource 1.5, reccs provided using Jevity 1.2. Recc bolus feeds of Jevity 1.2 6x/d of 250mL each with 150mL free water flushes q4h. This regimen provides: 1728kcals (29kcal/kg) and 80g PRO (1.4g/kg) with 2062mL total water (35mL/kg) Ht: 185.42 cm Wt: 59 kg (-40% unintentional x2y, severe) BMI: 17.2 (underweight) UBW: 99kg Last BM: 03/09/21 (03/11/21 09:25) MNA: 3 Rishi Score: 9 Diet: 03/11/21 Lunch Clear Liquid Diet Diet Modifications: 03/11/21 Dinner Tube Feeding Diet Diet Modifications: TF Supplement type: Jevity 1.2 anthony TF mode of delivery: Bolus Starting flow rate mL/hr: 250 Flow rate goal mL/hr: 250 Titration Schedule to reach Goal Rate: n/a Max total daily volume in mL: 2,000 Free fluid: 150 Free Water Frequency: Q4H Comment: Bolus tube feedings, jevity 1.2 250 mL 6 times daily. Labs: RBC 4.72 X10^6/uL (4.5-5.9) 03/10/21 22:44 Hgb 15.1 g/dL (13.5-17.5) 03/10/21 22:44 Hct 44.9 % (41-53) 03/10/21 22:44 Creatinine 0.32 mg/dL (0.66-1.25) L 03/10/21 22:44 Lactate 1.9 mmol/L (0.7-2.1) 03/10/21 22:44 Monitoring/Evaluations: following for TF tolerance
--- NOTE | 2021-03-12 11:45 | PC.NURSE ---
Addendum entered by Asmita Sepulveda R.N. 03/12/21 14:47: PT TRANSFERRED TO ROOM 215 FOLLOWING ANOTHER BOLUS FEED- TOLERATING WELL AND ABLE TO MAINTAIN 3L AND POTENTIALLY WEAN FURTHER ON GEOFF SHIFT, ATTENTIVE AT BEDSIDE Original Note: able to wean pt down to 3L nc or 3L bleed in on home bipap machine- spo2 91-94% lungs dim at bases with occ crackles, NSR//ST per tele- denies pain or discomfort- able to communicate with use of electronic device and/or his - peg tube feedings per dietary guidelines using jevity 1.2, rather than 1.5 due to unavailability - tolerating bolus feeds thus far, no documented bm since admission and made floor care status without tele for potential discharge tomorrow with hospice to initiate services this week
--- NOTE | 2021-03-12 12:20 | CM.DPC ---
DCP/continued: Reviewed chart. Received notification from provider this AM that patient will be likely to d/c from [facility] within the next 48hrs with hospice. Received call from Melisa at Hospice this AM. She reports that they can see patient in the residence starting on Friday03-14-21. Melisa inquiring on whether or not patient will need any DME for home? REFRIGERATION TECH met with patient and spouse this afternoon explained role. Patient on BIPAP at time of visit but spouse at bedside. Spouse reports that she is completely agreeable for patient to d/c home with hospice on Friday. Spouse reports that they have some DME but would like bed and 02. REFRIGERATION TECH notified hospice and DME expected to be delivered on 03-13-21. REFRIGERATION TECH faxed clinical and demographic face sheet to hospice per their request. Hospice requesting d/c summary as well once available. It is currently anticipated that patient will need non-urgent BLS transport at time of d/c. CM team to follow up with spouse prior to d/c to determine safest mode of transport. P: Home with Hospice arranged for 03-14-21. JOSIE
--- NOTE | 2021-03-12 14:42 | PC.NURSE ---
Day shift: Pt in room 215 at approx 1435 from room 228 (ICU). This show card writer has read over Pt's medical history. Report given to this show card writer by KALEB Tian. Pt's spouse and Mother in room. Pt has no c/o or S/S of pain or discomfort. Oriented to room and call light. Pt is across from RN station. Suction set up at bedside. Pt has an electronic device that allows him to communicate.
--- NOTE | 2021-03-12 14:43 | P.PN_ITS ---
Subjective Subjective Date Patient Seen: 03/12/21 Time Patient Seen: 14:43 Interval history: This is a 45-year-old male with a past medical history of ALS admitted with acute respiratory failure. He is much improved today. Ultimately elected for discharge home with hospice which is currently in the works. Overnight he had an episode of nausea and vomiting while using hospital BiPAP machine, relieved with Zofran and venting via his gastric tube. Otherwise mariella athing is much improved today and he was without further complaints. Exam Vital Signs (past 8 hours): - 03/12/21 07:48 03/12/21 08:00 03/12/21 10:40 Temperature 97.6 F Pulse Rate 92 H 80 Respiratory Rate 24 24 Blood Pressure 124/78 Pulse Oximetry 92 95 91 Fraction of Inspired Oxygen 55 Oxygen Delivery Method BiPAP Oxygen Flow Rate 3 Narrative Exam Narrative: GENERAL APPEARANCE:? Chronically ill-appearing and thin male, calm and comfortable appearing. SKIN: Inspection of the skin reveals no rashes, ulcerations or petechiae. HEENT:? Normocephalic atraumatic, extraocular muscles are intact, oropharynx is clear and mucous membranes are moist, neck is supple without adenopathy NECK: Supple and symmetric. There was no thyroid enlargement, and no tenderness, or masses were felt. CHEST: Normal AP diameter and normal contour without any kyphoscoliosis. LUNGS: Auscultation of the lungs revealed decreased air flow over the bilateral lung bases without wheezing. CARDIOVASCULAR:? Tachycardic with a regular rhythm, no murmurs, rubs, or gallops. ABDOMEN:? Soft, nontender, and nondistended.? There is a gastric tube in place. MUSCULOSKELETAL:? Muscle atrophy of all extremities, no joint effusions. EXTREMITIES: No cyanosis, clubbing or edema. NEUROLOGIC:? Able to communicate via eye tracking device for text, otherwise unable to further assess. more alert today. Objective Labs Result Diagrams: 03/10/21 22:44 03/10/21 22:44 Labs: Laboratory Results - last 24 hr 03/11/21 03/12/21 19:20 04:44 ABG pH 7.42 ABG pCO2 54.3 H ABG pO2 126 H ABG HCO3 35 H ABG Total CO2 37 H ABG O2 Saturation 99 ABG Base Excess 10.0 H FiO2 48 Procalcitonin 0.12 PFSH Medical History ALS (amyotrophic lateral sclerosis) HTN (hypertension) Surgical History S/P ORIF (open reduction internal fixation) fracture Social History household members: spouse Smoking Status: Never smoker alcohol intake: never Assessment & Plan Assessment & Plan narrative: 1. acute on chronic respiratory failure with hypercarbia and hypoxemia, improving ?- could be secondary to worsening ALS, pneumonia given leukocytosis, or mucous plugging. Suspect pneumonia or mucous plug given improvement today ?- improved somewhat with BiPAP therapy initially. initial PCO2 of 80 improved to 50s. Looks somewhat to be his baseline based on blood gases. Started on levaquin for possible pneumonia. later in the afternoon patient appeared fairly comfortable off bipap which facilitated further goals of care discussion with the patient. Patient elected for no intubation. Discharge home on hospice. ?- Intubation highly recommended against by . He had previously been in [facility] for hospice. He is not a transfer candidate to for further discussions. did state we could reach out to his neurologist tomorrow if family desires for any further recommendations. -will continue to work with home bipap machine to see if some settings can be adjusted given hypercarbia. He is fairly stable throughout today however. - previously on 15 L down to 3L oxygen today. - secretions improved with scopalamine patch. 2. ALS, chronic ?- can continue home medications via feeding tube, likely will need to bring a number of them in as non-formulary medications. - would recommend follow up with neurology for further discussions potenti ally with palliative care and hospice given end stage ALS and further preparation for the family. 3. benzodiazepine withdrawal ?- patient on 10 mg of diazepam as much as TID, (family states he takes BID dosing regularly). explain some initial tachypnea, tachycardia though these may be in setting of possible pneumonia as well. Continue ativan IV prn. resume home diazepam BID, but will be prn as this may have been contributing towards patient's hypercarbia. 4. Possible bacterial pneumonia ?- as above started on oral levaquin given presentation with severe hypoxia, hypercarbia, increased pulmonary secretions. No significant CXR findings and procalcitonin negative. Family wishes to continue oral levaquin after risks and benefits discussion today to complete 5 day course. DVT: Lovenox daily Dispo: regular floor. Plan for hospice in the next few days, hopefully off of supplemental o2 at that time. Code: DNR. Surrogate decision maker is patient's spouse and with assistance from mother. Time Spent With Patient Critical Care time: I spent a total of [] minutes of critical care time on this patient's care today; this time is exclusive of procedural time.
[2021-03-12] MEDS: polyethylene glycoL 3350 17 GM POWD.PACK PO (16:12)
[2021-03-12] MEDS: SENNOSIDES 8.6 MG TABLET PO (21:00)
[2021-03-12] MEDS: TRAMADOL 50 MG TABLET TUBE (21:05)
[2021-03-12] MEDS: diazePAM 5 MG TABLET PO (21:11)
[2021-03-13] MEDS: levoFLOXacin 250 MG TABLET 750 MG PO (06:26)
[2021-03-13 07:01] VITALS: RESP 21; O2SAT 89; O2SAT 90
[2021-03-13 07:26] VITALS: BP 102/68; PULSE 97; RESP 19; TEMP 36.4; O2SAT 95
[2021-03-13] MEDS: MORPHINE 2 MG/ML INJ IV ×3 (07:31→10:44)
--- NOTE | 2021-03-13 07:33 | PC.NURSE ---
Patient did not get 0400 feeding as there was no Jevity on the floor and the charge nurse was unable to obtain one from dietary. Oncoming RN notified of missed feeding.
[2021-03-13] MEDS: LORazepam 2 MG/ML INJ 1 MG IV ×2 (08:23→09:57)
[2021-03-13] MEDS: DEXTROMETHORPHAN QUINIDINE 1 EACH TUBE (08:33)
[2021-03-13] MEDS: Mexiletine 150 mg capsule 300 EACH TUBE (08:33)
[2021-03-13] MEDS: GABAPENTIN 300 MG CAPSULE PO (08:34)
[2021-03-13] MEDS: polyethylene glycoL 3350 17 GM POWD.PACK PO (08:34)
[2021-03-13] MEDS: ENOXAPARIN 40 MG/0.4 ML SYRINGE SUBCUT (08:35)
[2021-03-13] MEDS: BACLOFEN 10 MG TABLET TUBE (08:36)
[2021-03-13] MEDS: diazePAM 5 MG TABLET PO (08:36)
--- NOTE | 2021-03-13 08:36 | DIET.PN1 ---
Dietary Progress Note RD Note: Dietary reconsulted for low Rishi score, immobility, decreased intake, end stage ALS. Pt receiving all nutrition via PEG tube, pts current feeding regimen provides 100% of needs to support above mentioned conditions. Pt to d/c c hospice support.
--- NOTE | 2021-03-13 09:27 | PC.NURSE ---
Day shift: Pt given dietary feeding per Kelin. This printout and instructions located in Pt's chart. Pt tolerated well. Pt's spouse was very helpful. SHe reported that he has had the feeding tube since 2019.
--- NOTE | 2021-03-13 10:37 | PC.NURSE ---
Day shift: Pt having respiratory distress and staff emergency called at approx 0945. Dr Whalen in room at approx 0945 and RT was called. Deep suctioning performed and parts of airway cleared. Pt still struggling to maintain O2 on HF NC sats above 90%. dietetic technician registered Arnel gonzales and DUCTFIXING PLUMBER Asmita in room now and is Pt's primary RN at this time (1045). BP 140's over 60's. HR tachy 120's. Dr Whalen has talked with Pt's spouse Yvonne in the Pt's room about Pt's disease and how the trouble breathing is part of it and that Pt could pass away at anytime. Family being called by Yvonne and arrangements being made by charge master coordinator for family to see Pt. IV Ativan and IV Morphine given to Pt per verbal MD orders in room. This is documented in the MAR. RT remains in Pt's room as well and KALEB Tian at this time 1052.
[2021-03-13] MEDS: MORPHINE 4 MG/ML INJ IV (11:20)
[2021-03-13] MEDS: MORPHINE 50 MG in DEXTROSE 5 % IN WATER 45 ML IV (11:28)
[2021-03-13 11:30] VITALS: BP 142/80; PULSE 136; RESP 42; O2SAT 90
--- NOTE | 2021-03-13 12:28 | RT ---
Patient had staff emergency called at approx. 0940. Arrived to room with RT Ruiz. Multiple suction attempts to clear suspected mucus plug. Used cough assist as well in turns in conjunction with suctioning to maintain patent airway and clear secretions. Patient's sat on arrival to room was readign 24% though unsure as to the accuracy. After valant effort by this information writer, nursing staff, and RT Ruiz, patient's sats returned to low 90's. Patient would intermittently drop into 60's and 70's and would be bagged back up, suctioned, and have cough assist. This countinued until 1220 when patient's daughters arrived to join his sons, mother, father, and to say goodbye. Left room on arrival of daughters. Patient was 54% despite manual ventilation. All efforts discontinued, patient transitioned to heated aerosol mask so patient's family could see his face and spend quality time with him before his passing. Sole George, PROTOTYPE CARPENTER
--- NOTE | 2021-03-13 13:23 | PC.NURSE ---
ASSUMED CARE OF PT AFTER SLD TEACHER/ IMMEDIATE HELP CALLED OVERHEAD FOR ROOM 215- , MADDIE AT BEDSIDE AND REITERATED THE FACT OF PT BEING A DNR/DNI - PT WAS STRUGGLING AND REQUIRED FREQUENT DEEP SUCTIONING BY RESP THERAPY AND CONTINUED MASK VALVE VENTILATION TO MAINTAIN ADEQUATE SPO2 THIS CYCLED OVER AND OVER UNTIL ENTIRE FAMILY PRESENT- DURING THIS TIME MORPHINE GTT INITIATED TO ALLEVIATE AIR HUNGER AND EASE OF BREATHING AND ANY ANXIETY/PAIN HE MIGHT HAVE- NASAL TRUMPET INSERTED IN RIGHT NARE- PT BECAME ASYSTOLIC AND APNEIC AT 1232 WITH FAMILY PRESENT. HOME [place]
--- NOTE | 2021-03-13 13:55 | CM.DPC ---
DCP/continued: Reviewed EMR. Per RN patient today. No additional needs identified. PERSONNEL MANAGER placed call to Gladys at hospice to inform her that their services will no longer be needed. JOSIE
--- NOTE | 2021-03-13 14:15 | PC.NURSE ---
Day shift: Pt's home meds given to family member at approx 1425 today.
--- NOTE | 2021-03-13 14:21 | PC.NURSE ---
Day shift: Just checked in with Yvonne and she said that they now have all his belongings. She also stated that they are going to wait for the home people before they go home.
--- NOTE | 2021-03-13 14:37 | P.DN_ITS ---
Discharge Summary History of Illness Narrative: Per Dr. Vickers: This is a 45-year-old male with a past medical history of ALS who is on BiPAP at home who presented with respiratory distress and difficulty with increasing secretions over the past couple of days. His has been working on frequent suctioning without much relief, and despite his home BiPAP he has been having episodes where his O2 saturations dropped into the 60% range. Communicates with eye tracking device where he can type. Communication limited due to need for bipap mask. Extensive goals of care discussion has been performed both in the emergency department and with me with no current decision on whether not intubation would be desired. The patient is currently talking with family. In the emergency room, he was tachycardic and hypertensive, extremely tachypneic. Initial blood gas showed a respiratory acidosis with a pCO2 of 80. This improved to a pCO2 of 54 and no acidosis with initiation of BiPAP. His breathing appeared much more comfortable with Ativan and morphine, and currently has BiPAP has been taken off to facilitate communication for goals of care discussion. He had a leukocytosis with a WBC of 25.1, with 83% neutrophils. D- dimer was 664. Repeat ABG while on BiPAP shows a pCO2 of 56, fairly stable from his previous one. Chemistry evaluation was largely unremarkable. Troponin was negative. COVID-19 testing was negative. Hospital Course Date of Admission: 03/11/21 08:22 Primary care provider: Morgan Otreo MD Consults: 03/10/21 22:31 Consult to Respiratory Therapy Evaluate & Treat Comment: Physician Instructions: Evaluate and treat 03/11/21 17:06 Consult to Dietitian, Adult Routine Comment: Reason For Exam: tube feeding - Pt uses isosource 1.5 at home 03/13/21 00:19 Consult to Dietitian, Adult Routine Comment: IMMOBILITY, DECREASED INTAKE, END STAGE ALS Reason For Exam: LOW CARMELA SCALE Discharge Diagnosis: 1. Acute on chronic respiratory failure 2. Aspiration 3. End stage ALS 4. Benzodiazepene withdrawal 5. Severe protein calorie malnutrition, BMI 17.2 Hospital Course: Mr. Benton was initially admitted with severe respiratory distress. This is the setting of known end stage ALS with BIPAP use at home, and also needing a g-tube. He was started on levaquin for possible pneumonia. He did have significant sputum that needed suctioning. Initially he had some improvement on bipap. With discussion with patient and family they made decision to have him be DNR/DNI. Discussion was had with neurology who strongly recommended against intubation. On the morning of 03/13 he had sudden severe respiratory distress and hypoxemia likely from aspiration or mucous plugging. He was suctioned multiple times and needed to have bag mask ventilation. Despite repeated efforts his respiratory status continued to decline. Discussion was had with his , Yvonne, and other family members about his end stage ALS, and that there was no further treatment available that could reverse his condition. He was given IV morphine for air hunger after discussion with his , Yvonne. He continued to be hypoxemic and his sats could not be improved and he at 12:32pm with family at bedside. Objective Labs Result Diagrams: 03/10/21 22:44 03/10/21 22:44
--- NOTE | 2021-03-13 15:12 | PC.NURSE ---
Day shift: Report given to KALEB Mata. Family in room at this time.
--- NOTE | 2021-03-13 15:47 | PC.NURSE ---
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 Allowed family to say final goodbyes. Signed paperwork with director of clinical education and copies made. news technical director was assisted with transfer of patient to [facility] at [facility]. left at 1530
== END 2021-03-13 15:30 | disposition expired | DRG 189 ==
LOC: ED 03-11 06:52 → AC 03-11 08:23 → ICU 03-11 11:41 → AC 03-13 14:20 → ICU 03-14 14:33
PROVIDERS: Nurse Practitioner Family; Admitting Provider Internal Medicine; Emergency Provider Emergency Medicine; PCP Internal Medicine; Referring Provider Emergency Medicine; Visit Provider Internal Medicine
DX: J96.22 Acute and chronic respiratory failure with hypercapnia (principal); E43 Unspecified severe protein-calorie malnutrition; J18.9 Pneumonia, unspecified organism; G12.21 Amyotrophic lateral sclerosis; Z68.1 Body mass index [BMI] 19.9 or less, adult; F13.939 Sedative, hypnotic or anxiolytic use, unspecified with withdrawal, unspecified; T17.990A Other foreign object in respiratory tract, part unspecified in causing asphyxiation, initial encounter; J96.21 Acute and chronic respiratory failure with hypoxia; Z20.822 Contact with and (suspected) exposure to COVID-19
CPT/HCPCS: 36415; 36600; 71045; 80053; 81003; 82550; 82805; 83605; 83735; 84145; 84484; 85025; 85379; 87040; 87635; 87797; 93005; 94660; 94667; 94762; 94799; 96360; 96361; 99285; 99291; C9803; J1650; J1956; J2060; J2270; J2405